=== PATIENT | female | born 1945 | race Caucasian/White ===

== ENCOUNTER 2018-10-03 12:29 | Observation (INO) | payer MEDICARE, OTHER ==
--- NOTE | 2018-10-03 13:02 | EDM.PDOC ---
ED HPI GENERAL MEDICAL PROBLEM - General Chief Complaint: General Stated Complaint: ISSUES FOLLOWING OPEN HEART SURGERY Time Seen by Provider: 10/03/18 12:33 Source of Information: Reports: Patient History Limitations: Reports: No Limitations - History of Present Illness INITIAL COMMENTS - FREE TEXT/NARRATIVE: HISTORY AND PHYSICAL: History of present illness: Patient is a 73-year-old female presents to the ED today with concern of shortness of breath when laying back after open heart surgery for aortic valve replacement. Patient states she had the surgery approximately 3 weeks ago in [place]. Patient states that if she lays back she gets a panicky feeling and feels short of breath. Patient states when she is sitting up she does not have any symptoms. Patient states she has a bovine valve and is on warfarin and her INRs have been appropriate. Patient states her total hospital stay was approximately one week and she had no complications from the surgery. Patient states she had called her surgeon with the symptoms who stated that she needed to be seen in the emergency room. Patient denies fever, chills, chest pain, or cough. Denies headache, neck stiff ness, change in vision, syncope, or near syncope. Denies nausea, vomiting, abdominal pain, diarrhea, constipation, or dysuria. Has not noted any blood in urine or stool. Patient has been eating and drinking appropriately. Review of systems: As per history of present illness and below otherwise all systems reviewed and negative. Past medical history: As per history of present illness and as reviewed below otherwise noncontributory. Surgical history: As per history of present illness and as reviewed below otherwise noncontributory. Social history: See social history for further information Family history: As per history of present illness and as reviewed below otherwise noncontributory. Physical exam: General: Patient is alert, oriented, and in no acute distress. Patient sitting comfortably on exam table. HEENT: Atraumatic, normocephalic, pupils equal and reactive bilaterally, negative for conjunctival pallor or scleral icterus, mucous membranes moist, TMs normal bilaterally, throat clear, neck supple, nontender, trachea midline. No drooling or trismus noted. No meningeal signs. No hot potato voice noted. Lungs: Clear to auscultation, breath sounds equal bilaterally, chest nontender. Heart: S1S2, regular rate and rhythm without overt murmur Abdomen: Soft, nondistended, nontender. Negative for masses or hepatosplenomegaly. Negative for costovertebral tenderness. Pelvis: Stable nontender. Genitourinary: Deferred. Rectal: Deferred. Skin: Intact, warm, dry. No lesions or rashes noted. Extremities: Atraumatic, negative for cords or calf pain. Neurovascular unremarkable. Neuro: Awake, alert, oriented. Cranial nerves II through XII unremarkable. Cerebellum unremarkable. Motor and sensory unremarkable throughout. Exam nonfocal. Notes: Dr. Chacon verbally involved in patient care. Patient did have an echo done in March of this year which showed an ejection fraction of 45-50%. Today her echo has an ejection fracture of 25%. I did call [facility] in [place], where patient had her aortic valve replaced. I talked to Dr. Carter Lawson, the cardiothoracic surgeon. I did thoroughly discuss the patient's case with him. Per his recommendations patient does not need to be transferred to [place] at this time. He states to optimally manage her for congestive heart failure and to have her follow up with cardiology this week in [place]. I did call and get patient appointment with the cardiology clinic in [place] for this Tuesday at 11:[address] Cantrell consulted on patient and will admit to observation. Voices understanding and is agreeable to plan of care. Denies any further questions or concerns at this time. Diagnostics: CBC, CMP, UA, EKG, troponin, chest x-ray, PT/INR, Echo Therapeutics: Lasix Impression: Congestive heart failure s/p aortic valve replacement Subtherapeutic INR Orthopnea Small pleural effusion on CXR Plan: 1. Admit to observation to Dr. Cantrell. Definitive disposition and diagnosis as appropriate pending reevaluation and review of above. - Related Data Allergies Allergy/AdvReac Type Severity Reaction Status Date / Time latex Allergy Difficulty Verified 10/03/18 12:33 Breathing ANASTHESIA Allergy Vomiting Uncoded 10/03/18 12:33 Home Meds: Home Meds Aspirin [Sonia Chewable] 81 mg PO 10/15/13 [History] Calcium Carbonate/Vitamin D3 [Calcium 500 + Vit D 200 Caplet] 1 each PO [History] Pantoprazole Sodium [Protonix] 40 mg PO DAILY 10/15/13 [History] Acetaminophen 1,000 mg PO ASDIRECTED 10/03/18 [History] Albuterol Sulfate [Albuterol Sulfate Hfa] 8.5 gm INH ASDIRECTED 10/03/18 [ History] Diclofenac Sodium [Voltaren 1% Gel] 2 gm TOP ASDIRECTED 10/03/18 [History] Ferrous Sulfate [Iron] 325 mg PO DAILY 10/03/18 [History] Furosemide 20 mg PO DAILY 10/03/18 [History] Loratadine 10 mg PO ASDIRECTED 10/03/18 [History] Metoprolol Tartrate 12.5 mg PO BID 10/03/18 [History] Mometasone Furoate [Nasonex] 17 gm INH ASDIRECTED 10/03/18 [History] Potassium Chloride 20 meq PO DAILY 10/03/18 [History] Tiotropium [Spiriva HandiHaler] 18 mcg INH DAILY 10/03/18 [History] Warfarin [Coumadin] 5 mg PO DAILY 10/03/18 [History] Past Medical History HEENT History: Reports: Cataract 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 - Infectious Disease History Infectious Disease History: Reports: Chicken Pox, Mumps - Past Surgical History HEENT Surgical History: Reports: Tonsillectomy Cardiovascular Surgical History: Reports: Valve Replacement GI Surgical History: Reports: Cholecystectomy Social & Family History - Family History Family Medical History: Noncontributory - Tobacco Use Smoking Status *Q: Former Smoker Used Tobacco, but Quit: Yes Month/Year Tobacco Last Used: 1968 - Caffeine Use Caffeine Use: Reports: Coffee, Tea - Recreational Drug Use Recreational Drug Use: No ED ROS GENERAL - Review of Systems Review Of Systems: ROS reveals no pertinent complaints other than HPI. ED EXAM, GENERAL - Physical Exam Exam: See Below (See dictation) Course - Vital Signs Last Recorded V/S: Last Vital Signs Temp 36.2 C 10/03/18 12:47 Pulse 81 10/03/18 12:47 Resp 18 10/03/18 12:47 BP 153/96 H 10/03/18 12:47 Pulse Ox 95 10/03/18 12:47 - Orders/Labs/Meds Orders: Active Orders 24 hr Category Date Time Status Cardiac Monitoring [RC] . DIRECTED Care 10/03/18 12:39 Active EKG Documentation Completion [RC] STAT Care 10/03/18 12:40 Active Echo Comp wo Cont [US] Stat Exams 10/03/18 12:41 Taken Furosemide [Lasix] Med 10/03/18 15:58 Once 20 mg IVPUSH NOW ONE Labs: Laboratory Tests 10/03/18 10/03/18 10/03/18 Range/Units 12:52 12:52 12:52 WBC 6.52 (4.0-11.0) K/uL RBC 3.67 L (4.30-5.90) M/uL Hgb 10.2 L (12.0-16.0) g/dL Hct 33.9 L (36.0-46.0) % MCV 92.4 (80.0-98.0) fL MCH 27.8 (27.0-32.0) pg MCHC 30.1 L (31.0-37.0) g/dL RDW Std Deviation 53.8 (28.0-62.0) fl RDW Coeff of Destiny 16 H (11.0-15.0) % Plt Count 276 (150-400) K/uL MPV 9.40 (7.40-12.00) fL Neut % (Auto) 65.8 (48.0-80.0) % Lymph % (Auto) 23.2 (16.0-40.0) % [place] % (Auto) 7.8 (0.0-15.0) % Eos % (Auto) 2.9 (0.0-7.0) % Baso % (Auto) 0.3 (0.0-1.5) % Neut # (Auto) 4.3 (1.4-5.7) K/uL Lymph # (Auto) 1.5 (0.6-2.4) K/uL [place] # (Auto) 0.5 (0.0-0.8) K/uL Eos # (Auto) 0.2 (0.0-0.7) K/uL Baso # (Auto) 0.0 (0.0-0.1) K/uL Nucleated RBC % 0.0 /100WBC Nucleated RBCs # 0 K/uL INR 1.48 Sodium 141 (136-145) mmol/L Potassium 4.1 (3.5-5.1) mmol/L Chloride 104 (98-107) mmol/L Carbon Dioxide 26.4 (21.0-32.0) mmol/L BUN 10 (7.0-18.0) mg/dL Creatinine 1.0 (0.6-1.0) mg/dL Est Cr Clr Drug Dosing 42.68 mL/min Estimated GFR (MDRD) 54.7 ml/min Glucose 112 H (74-106) mg/dL Calcium 9.0 (8.5-10.1) mg/dL Total Bilirubin 0.6 (0.2-1.0) mg/dL AST 21 (15-37) IU/L ALT 64 H (14-63) IU/L Alkaline Phosphatase 108 (46-116) U/L Troponin I < 0.050 (0.000-0.056) ng/mL B-Natriuretic Peptide (<100) PG/ML Total Protein 7.0 (6.4-8.2) g/dL Albumin 3.7 (3.4-5.0) g/dL Globulin 3.3 (2.6-4.0) g/dL Albumin/Globulin Ratio 1.1 (0.9-1.6) Urine Color Urine Appearance Urine pH (5.0-8.0) Ur Specific [place] (1.001-1.035) Urine Protein (NEGATIVE) mg/dL Urine Glucose (UA) (NEGATIVE) mg/dL Urine Ketones (NEGATIVE) mg/dL Urine Occult Blood (NEGATIVE) Urine Nitrite (NEGATIVE) Urine Bilirubin (NEGATIVE) Urine Urobilinogen (<2.0) EU/dL Ur Leukocyte Esterase (NEGATIVE) Urine RBC (0-2/HPF) Urine WBC (0-5/HPF) Ur Epithelial Cells (NONE-FEW) Urine Bacteria (NEGATIVE) 10/03/18 10/03/18 Range/Units 12:52 14:00 WBC (4.0-11.0) K/uL RBC (4.30-5.90) M/uL Hgb (12.0-16.0) g/dL Hct (36.0-46.0) % MCV (80.0-98.0) fL MCH (27.0-32.0) pg MCHC (31.0-37.0) g/dL RDW Std Deviation (28.0-62.0) fl RDW Coeff of [place]iny (11.0-15.0) % Plt Count (150-400) K/uL MPV (7.40-12.00) fL Neut % (Auto) (48.0-80.0) % Lymph % (Auto) (16.0-40.0) % [place] % (Auto) (0.0-15.0) % Eos % (Auto) (0.0-7.0) % Baso % (Auto) (0.0-1.5) % Neut # (Auto) (1.4-5.7) K/uL Lymph # (Auto) (0.6-2.4) K/uL [place] # (Auto) (0.0-0.8) K/uL Eos # (Auto) (0.0-0.7) K/uL Baso # (Auto) (0.0-0.1) K/uL Nucleated RBC % /100WBC Nucleated RBCs # K/uL INR Sodium (136-145) mmol/L Potassium (3.5-5.1) mmol/L Chloride (98-107) mmol/L Carbon Dioxide (21.0-32.0) mmol/L BUN (7.0-18.0) mg/dL Creatinine (0.6-1.0) mg/dL Est Cr Clr Drug Dosing mL/min Estimated GFR (MDRD) ml/min Glucose (74-106) mg/dL Calcium (8.5-10.1) mg/dL Total Bilirubin (0.2-1.0) mg/dL AST (15-37) IU/L ALT (14-63) IU/L Alkaline Phosphatase (46-116) U/L Troponin I (0.000-0.056) ng/mL B-Natriuretic Peptide 1266 H (<100) PG/ML Total Protein (6.4-8.2) g/dL Albumin (3.4-5.0) g/dL Globulin (2.6-4.0) g/dL Albumin/Globulin Ratio (0.9-1.6) Urine Color YELLOW Urine Appearance CLEAR Urine pH 6.5 (5.0-8.0) Ur Specific [place] <= 1.005 (1.001-1.035) Urine Protein NEGATIVE (NEGATIVE) mg/dL Urine Glucose (UA) NEGATIVE (NEGATIVE) mg/dL Urine Ketones NEGATIVE (NEGATIVE) mg/dL Urine Occult Blood SMALL H (NEGATIVE) Urine Nitrite NEGATIVE (NEGATIVE) Urine Bilirubin NEGATIVE (NEGATIVE) Urine Urobilinogen 0.2 (<2.0) EU/dL Ur Leukocyte Esterase NEGATIVE (NEGATIVE) Urine RBC 0-1 (0-2/HPF) Urine WBC NONE SEEN (0-5/HPF) Ur Epithelial Cells RARE (NONE-FEW) Urine Bacteria RARE (NEGATIVE) Departure - Departure Time of Disposition: 16:02 Disposition: Refer to Observation Clinical Impression: Congestive heart failure as early postoperative complication, Orthopnea, Subtherapeutic anticoagulation, Small pleural effusion - Discharge Information - My Orders Last 24 Hours: My Active Orders 10/03/18 12:39 Cardiac Monitoring [RC] . DIRECTED 10/03/18 12:40 EKG Documentation Completion [RC] STAT 10/03/18 12:41 Echo Comp wo Cont [US] Stat 10/03/18 15:58 Furosemide [Lasix] 20 mg IVPUSH NOW ONE - Assessment/Plan Last 24 Hours: My Active Orders 10/03/18 12:39 Cardiac Monitoring [RC] . DIRECTED 10/03/18 12:40 EKG Documentation Completion [RC] STAT 10/03/18 12:41 Echo Comp wo Cont [US] Stat 10/03/18 15:58 Furosemide [Lasix] 20 mg IVPUSH NOW ONE
--- NOTE | 2018-10-03 13:47 | CR ---
EXAMINATION: Two-view chest (PA and Lateral views). HISTORY: Shortness of breath. FINDINGS: The trachea is midline. The heart is enlarged. The cardiomediastinal silhouette is within normal limits. There is a small right and minimal left pleural effusion with adjacent atelectasis. Median sternotomy wires are noted. Aortic valvular replacement. Osseous structures appear unremarkable. IMPRESSION: Cardiomegaly with a small right pleural effusion.
[2018-10-03 13:55] LABS: CHLORIDE,CL 104 mmol/L (98-107); SODIUM,NA 141 mmol/L (136-145)
[2018-10-03] MEDS ORDERED: Furosemide 40 MG/4 ML VIAL IVPUSH ONE ×2 (15:58→17:08)
--- NOTE | 2018-10-03 16:51 | PCM.HP ---
H&P History of Present Illness - General Date of Service: 10/03/18 Admit Problem/Dx: Admission Diagnosis/Problem Admission Diagnosis/Problem CHF, Congestive heart failure Source of Information: Patient, Old Records History Limitations: Reports: No Limitations - History of Present Illness Initial Comments - Free Text/Narative: This 73 year old female with pmh of recent TAVR in [place] 3 weeks ago, HTN, chronic bronchitis, and GERD presents to the ED today with worsening shortness of breath, especially when lying down along with worsening lower leg edema. She reports she followed up with Cardiology clinic September 26 and everything was going well. She recently increased Coumadin dosage to 5 mg daily due to subtherapeutic INR. She denies chest pain or palpitations. No abdominal pain. She is unsure of her dry weight, but that last appointment she was 175 lbs. She reports being complaint with medications, including Metoprolol and Lasix. Denies salt intake. Reports appetite is poor after surgery still, but is trying to eat more and more. In the ED Hgb 10.2 INR 1.48, BMP WNL. BNP 1266. UA negative. CXR shows cardiomegaly with R pleural effusion. EKG SR with LAD. Stat ECHO ws obtained and sent to [place]. ED provider spoke with cardiothoracic surgeon who saw severely diminished EF, 25% and recommended diuresis. No need for acute transfer. She will be admitted observation with acute exacerbation of heart failure. - Related Data Allergies/Adverse Reactions: Allergies Allergy/AdvReac Type Severity Reaction Status Date / Time latex Allergy Severe Anaphylactic Verified 10/03/18 17:33 Shock avocado Allergy Anaphylactic Verified 10/03/18 17:33 Shock banana Allergy Anaphylactic Verified 10/03/18 17:33 Shock anesthesia Allergy Vomiting Uncoded 10/03/18 17:34 Home Medications: Home Meds Aspirin [Sonia Chewable] 81 mg PO DAILY 10/15/13 [History] Calcium Carbonate/Vitamin D3 [Calcium 500 + Vit D 200 Caplet] 1 each PO DAILY [History] Pantoprazole Sodium [Protonix] 40 mg PO DAILY 10/15/13 [History] Acetaminophen 1,000 mg PO Q4H PRN 10/03/18 [History] Albuterol Sulfate [Albuterol Sulfate Hfa] 2 puff INH Q4H 10/03/18 [History] Diclofenac Sodium [Voltaren 1% Gel] 2 gm TOP ASDIRECTED PRN 10/03/18 [History] Ferrous Sulfate [Iron] 325 mg PO DAILY 10/03/18 [History] Furosemide 20 mg PO DAILY 10/03/18 [History] Loratadine 10 mg PO ASDIRECTED 10/03/18 [History] Metoprolol Tartrate 12.5 mg PO BID 10/03/18 [History] Mometasone Furoate [Nasonex] 2 spray INH DAILY PRN 10/03/18 [History] Potassium Chloride 20 meq PO DAILY 10/03/18 [History] Tiotropium [Spiriva HandiHaler] 18 mcg INH DAILY 10/03/18 [History] Warfarin [Coumadin] 5 mg PO DAILY 10/03/18 [History] Past Medical History HEENT History: Reports: Cataract Cardiovascular History: Reports: Heart Failure, Heart Valve Replacement (bovine aortic, August 2018), High Cholesterol, Hypertension Respiratory History: Reports: COPD (chronic bronchitis) Gastrointestinal History: Reports: GERD 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 Endocrine/Metabolic History: Denies: Diabetes, Type II Hematologic History: Reports: Anticoagulation Therapy - Infectious Disease History Infectious Disease History: Reports: Chicken Pox, Mumps - Past Surgical History HEENT Surgical History: Reports: Tonsillectomy Cardiovascular Surgical History: Reports: Valve Replacement (TAVR) GI Surgical History: Reports: Cholecystectomy Social & Family History - Family History Family Medical History: Noncontributory - Tobacco Use Smoking Status *Q: Former Smoker Used Tobacco, but Quit: Yes Month/Year Tobacco Last Used: 1968 - Caffeine Use Caffeine Use: Reports: Coffee, Tea - Recreational Drug Use Recreational Drug Use: No - Living Situation & Occupation Living situation: Reports: Occupation: Retired H&P Review of Systems - Review of Systems: Review Of Systems: See Below General: Reports: Decreased Appetite (since surgery). Denies: Fever, Chills HEENT: Reports: No Symptoms. Denies: Headaches, Sore Throat, Vertigo, Visual Changes Pulmonary: Reports: Shortness of Breath (mainly orthopnea). Denies: Cough, Hemoptysis Cardiovascular: Reports: Orthopnea, Edema (lower legs). Denies: Chest Pain Gastrointestinal: Reports: No Symptoms. Denies: Abdominal Pain, Black Stool, Bloody Stool, Diarrhea, Nausea, Vomiting Genitourinary: Reports: No Symptoms Musculoskeletal: Reports: No Symptoms Skin: Reports: No Symptoms Psychiatric: Reports: No Symptoms Neurological: Reports: No Symptoms Exam - Exam Exam: See Below - Vital Signs Vital Signs: Last Vital Signs Temp 97.2 F 10/03/18 12:47 Pulse 84 10/03/18 16:00 Resp 18 10/03/18 12:47 BP 153/86 H 10/03/18 16:00 Pulse Ox 96 10/03/18 16:00 Weight: 79.379 kg - Exam Quality Assessment: DVT Prophylaxis General: Alert, Oriented, Cooperative HEENT: Conjunctiva Clear, Mucosa Moist & [place], Pupils Equal Neck: Supple, JVD Lungs: Normal Respiratory Effort (sitting on edge of ED bed.), Decreased Breath Sounds Cardiovascular: Regular Rate, Regular Rhythm GI/Abdominal Exam: Normal Bowel Sounds, Soft, Non-Tender Back Exam: Normal Inspection, Full Range of Motion Extremities: Normal Inspection, Normal Range of Motion, Pedal Edema (+2 pitting edema to BLE) Skin: Warm, Dry, Incision (Healing sternotomy incision, nearly completely healed.) Neuro Extensive - Mental Status: Alert, Oriented x3, Normal Mood/Affect Psychiatric: Alert, Normal Affect, Normal Mood - Patient Data Lab Results Last 24 hrs: Laboratory Results - last 24 hr 10/03/18 10/03/18 10/03/18 Range/Units 12:52 12:52 12:52 WBC 6.52 (4.0-11.0) K/uL RBC 3.67 L (4.30-5.90) M/uL Hgb 10.2 L (12.0-16.0) g/dL Hct 33.9 L (36.0-46.0) % MCV 92.4 (80.0-98.0) fL MCH 27.8 (27.0-32.0) pg MCHC 30.1 L (31.0-37.0) g/dL RDW Std Deviation 53.8 (28.0-62.0) fl RDW Coeff of Destiny 16 H (11.0-15.0) % Plt Count 276 (150-400) K/uL MPV 9.40 (7.40-12.00) fL Neut % (Auto) 65.8 (48.0-80.0) % Lymph % (Auto) 23.2 (16.0-40.0) % [place] % (Auto) 7.8 (0.0-15.0) % Eos % (Auto) 2.9 (0.0-7.0) % Baso % (Auto) 0.3 (0.0-1.5) % Neut # (Auto) 4.3 (1.4-5.7) K/uL Lymph # (Auto) 1.5 (0.6-2.4) K/uL [place] # (Auto) 0.5 (0.0-0.8) K/uL Eos # (Auto) 0.2 (0.0-0.7) K/uL Baso # (Auto) 0.0 (0.0-0.1) K/uL Nucleated RBC % 0.0 /100WBC Nucleated RBCs # 0 K/uL INR 1.48 Sodium 141 (136-145) mmol/L Potassium 4.1 (3.5-5.1) mmol/L Chloride 104 (98-107) mmol/L Carbon Dioxide 26.4 (21.0-32.0) mmol/L BUN 10 (7.0-18.0) mg/dL Creatinine 1.0 (0.6-1.0) mg/dL Est Cr Clr Drug Dosing 42.68 mL/min Estimated GFR (MDRD) 54.7 ml/min Glucose 112 H (74-106) mg/dL Calcium 9.0 (8.5-10.1) mg/dL Total Bilirubin 0.6 (0.2-1.0) mg/dL AST 21 (15-37) IU/L ALT 64 H (14-63) IU/L Alkaline Phosphatase 108 (46-116) U/L Troponin I < 0.050 (0.000-0.056) ng/mL B-Natriuretic Peptide (<100) PG/ML Total Protein 7.0 (6.4-8.2) g/dL Albumin 3.7 (3.4-5.0) g/dL Globulin 3.3 (2.6-4.0) g/dL Albumin/Globulin Ratio 1.1 (0.9-1.6) Urine Color Urine Appearance Urine pH (5.0-8.0) Ur Specific [place] (1.001-1.035) Urine Protein (NEGATIVE) mg/dL Urine Glucose (UA) (NEGATIVE) mg/dL Urine Ketones (NEGATIVE) mg/dL Urine Occult Blood (NEGATIVE) Urine Nitrite (NEGATIVE) Urine Bilirubin (NEGATIVE) Urine Urobilinogen (<2.0) EU/dL Ur Leukocyte Esterase (NEGATIVE) Urine RBC (0-2/HPF) Urine WBC (0-5/HPF) Ur Epithelial Cells (NONE-FEW) Urine Bacteria (NEGATIVE) 10/03/18 10/03/18 Range/Units 12:52 14:00 WBC (4.0-11.0) K/uL RBC (4.30-5.90) M/uL Hgb (12.0-16.0) g/dL Hct (36.0-46.0) % MCV (80.0-98.0) fL MCH (27.0-32.0) pg MCHC (31.0-37.0) g/dL RDW Std Deviation (28.0-62.0) fl RDW Coeff of [place]iny (11.0-15.0) % Plt Count (150-400) K/uL MPV (7.40-12.00) fL Neut % (Auto) (48.0-80.0) % Lymph % (Auto) (16.0-40.0) % [place] % (Auto) (0.0-15.0) % Eos % (Auto) (0.0-7.0) % Baso % (Auto) (0.0-1.5) % Neut # (Auto) (1.4-5.7) K/uL Lymph # (Auto) (0.6-2.4) K/uL [place] # (Auto) (0.0-0.8) K/uL Eos # (Auto) (0.0-0.7) K/uL Baso # (Auto) (0.0-0.1) K/uL Nucleated RBC % /100WBC Nucleated RBCs # K/uL INR Sodium (136-145) mmol/L Potassium (3.5-5.1) mmol/L Chloride (98-107) mmol/L Carbon Dioxide (21.0-32.0) mmol/L BUN (7.0-18.0) mg/dL Creatinine (0.6-1.0) mg/dL Est Cr Clr Drug Dosing mL/min Estimated GFR (MDRD) ml/min Glucose (74-106) mg/dL Calcium (8.5-10.1) mg/dL Total Bilirubin (0.2-1.0) mg/dL AST (15-37) IU/L ALT (14-63) IU/L Alkaline Phosphatase (46-116) U/L Troponin I (0.000-0.056) ng/mL B-Natriuretic Peptide 1266 H (<100) PG/ML Total Protein (6.4-8.2) g/dL Albumin (3.4-5.0) g/dL Globulin (2.6-4.0) g/dL Albumin/Globulin Ratio (0.9-1.6) Urine Color YELLOW Urine Appearance CLEAR Urine pH 6.5 (5.0-8.0) Ur Specific [place] <= 1.005 (1.001-1.035) Urine Protein NEGATIVE (NEGATIVE) mg/dL Urine Glucose (UA) NEGATIVE (NEGATIVE) mg/dL Urine Ketones NEGATIVE (NEGATIVE) mg/dL Urine Occult Blood SMALL H (NEGATIVE) Urine Nitrite NEGATIVE (NEGATIVE) Urine Bilirubin NEGATIVE (NEGATIVE) Urine Urobilinogen 0.2 (<2.0) EU/dL Ur Leukocyte Esterase NEGATIVE (NEGATIVE) Urine RBC 0-1 (0-2/HPF) Urine WBC NONE SEEN (0-5/HPF) Ur Epithelial Cells RARE (NONE-FEW) Urine Bacteria RARE (NEGATIVE) Result Diagrams: 10/03/18 12:52 10/03/18 12:52 EKG INTERPRETATION EKG Date: 10/03/18 Rhythm: NSR [place]: LAD-Left [place] Deviation QRS: Normal ST-T: Normal QT: Normal - Problem List (1) Congestive heart failure as early postoperative complication SNOMED Code(s): 24046391940346 ICD Code: UIZ0977 - Status: Acute Current Visit: Yes (2) Orthopnea SNOMED Code(s): 35311921 ICD Code: R06.01 - ORTHOPNEA Status: Acute Current Visit: Yes (3) Small pleural effusion SNOMED Code(s): 90916574 ICD Code: J90 - PLEURAL EFFUSION, NOT ELSEWHERE CLASSIFIED Status: Acute Current Visit: Yes (4) Subtherapeutic anticoagulation SNOMED Code(s): 583192293 ICD Code: Z51.81 - ENCOUNTER FOR THERAPEUTIC DRUG LEVEL MONITORING; Z79.01 - FDC (CURRENT) USE OF ANTICOAGULANTS Status: Acute Current Visit: Yes (5) HTN (hypertension) SNOMED Code(s): 07929963 ICD Code: I10 - ESSENTIAL (PRIMARY) HYPERTENSION Status: Chronic Current Visit: Yes (6) Hx of aortic valve replacement SNOMED Code(s): 8609342878009, 100284812, 0105175570183 ICD Code: Z95.2 - PRESENCE OF PROSTHETIC HEART VALVE Status: Chronic Current Visit: Yes (7) GERD (gastroesophageal reflux disease) SNOMED Code(s): 059078522 ICD Code: K21.9 - GASTRO-ESOPHAGEAL REFLUX DISEASE WITHOUT ESOPHAGITIS Status: Chronic Current Visit: Yes (8) Chronic bronchitis SNOMED Code(s): 82602181 ICD Code: J42 - UNSPECIFIED CHRONIC BRONCHITIS Status: Chronic Current Visit: Yes Problem List Initiated/Reviewed/Updated: Yes Orders Last 24hrs: Active Orders 24 hr Category Date Time Status Admission Status [Patient Status] [ADT] Stat ADT 10/03/18 16:03 Active Cardiac Monitoring [RC] . DIRECTED Care 10/03/18 12:39 Active EKG Documentation Completion [RC] STAT Care 10/03/18 12:40 Active Echo Comp wo Cont [US] Stat Exams 10/03/18 12:41 Taken Assessment/Plan Comment:: This 73 year old female admitted with acute exacerbation of CHF s/p TAVR August 2018 1. Acute exacerbation of CHF: LV EF 25%, severely decreased left ventricular systolic function, multiple left ventricular region wall abnormalities exist. Will give another dose of Lasix to equal 40 mg IV this evening. Continue Lasix 40 mg IV BID. Monitor on telemetry Strict I/O, daily weight. Low Na diet with 1.5 L FR. Cardiology appointment set up for Tuesday in [place]. 2. HTN: Stable. Monitor with diuresis. 3. Aortic valve replacement: Continue Coumadin. Monitor INR daily. 4. Chronic bronchitis: Continue inhalers. No wheezing heard. VTE prophylaxis: Coumadin Dispo: 1-2 days.
[2018-10-03] MEDS ORDERED: Sodium Chloride 0.9% 2.5 ML Syringe FLUSH PRN (17:08)
[2018-10-03] MEDS ORDERED: Albuterol/Ipratropium 3.0-0.5 MG/3 ML Neb Soln NEB PRN (17:08)
[2018-10-03] MEDS: Acetaminophen 325 MG Tab PO PRN (20:17)
[2018-10-03] MEDS: Metoprolol Tartrate 25 MG Tab PO SCH (20:17)
[2018-10-04 05:45] LABS: CHLORIDE,CL 104 mmol/L (98-107); SODIUM,NA 142 mmol/L (136-145)
[2018-10-04] MEDS: Acetaminophen 325 MG Tab PO PRN ×2 (08:32→21:24)
[2018-10-04] MEDS: Aspirin 81 MG Tab.Chew PO SCH (08:42)
[2018-10-04] MEDS: Pantoprazole 40 MG Tab.CR PO SCH (08:42)
[2018-10-04] MEDS: Ferrous Sulfate 325 MG Tab PO SCH (08:42)
[2018-10-04] MEDS: Furosemide 40 MG/4 ML VIAL IVPUSH SCH ×2 (08:43→14:19)
[2018-10-04] MEDS: Metoprolol Tartrate 25 MG Tab PO SCH ×2 (08:53→21:22)
[2018-10-04] MEDS: Tiotropium Inhaler 18 MCG Inhalation Powder Cap Kit of 5 INH SCH (09:20)
--- NOTE | 2018-10-04 10:18 | PCM.PN ---
- General Info Date of Service: 10/04/18 Admission Dx/Problem (Free Text): Admission Diagnosis/Problem Admission Diagnosis/Problem CHF, Congestive heart failure Subjective Update: feeling improved today, BLE improved. Orthopnea and exertional dyspnea improved slightly as well. No chest pain or palpitations. Functional Status: Reports: Pain Controlled, Tolerating Diet, Ambulating, Urinating - Review of Systems HEENT: Reports: No Symptoms Pulmonary: Reports: Shortness of Breath Cardiovascular: Reports: Dyspnea on Exertion, Orthopnea, Edema (much improved.) Gastrointestinal: Reports: No Symptoms. Denies: Abdominal Pain, Nausea, Vomiting Genitourinary: Reports: No Symptoms. Denies: Dysuria, Frequency, Burning Musculoskeletal: Reports: No Symptoms Skin: Reports: No Symptoms Neurological: Reports: No Symptoms Psychiatric: Reports: No Symptoms - Patient Data Vitals - Most Recent: Last Vital Signs Temp 97.5 F 10/04/18 04:00 Pulse 85 10/04/18 08:53 Resp 18 10/04/18 04:00 BP 132/63 10/04/18 08:53 Pulse Ox 96 10/04/18 04:00 Weight - Most Recent: 71.838 kg I&O - Last 24 Hours: Intake & Output 10/03/18 10/04/18 10/04/18 22:59 06:59 14:59 Intake Total 300 Output Total 3050 Balance -2750 Lab Results Last 24 Hours: Laboratory Results - last 24 hr 10/03/18 10/03/18 10/03/18 Range/Units 12:52 12:52 12:52 WBC 6.52 (4.0-11.0) K/uL RBC 3.67 L (4.30-5.90) M/uL Hgb 10.2 L (12.0-16.0) g/dL Hct 33.9 L (36.0-46.0) % MCV 92.4 (80.0-98.0) fL MCH 27.8 (27.0-32.0) pg MCHC 30.1 L (31.0-37.0) g/dL RDW Std Deviation 53.8 (28.0-62.0) fl RDW Coeff of Destiny 16 H (11.0-15.0) % Plt Count 276 (150-400) K/uL MPV 9.40 (7.40-12.00) fL Neut % (Auto) 65.8 (48.0-80.0) % Lymph % (Auto) 23.2 (16.0-40.0) % [place] % (Auto) 7.8 (0.0-15.0) % Eos % (Auto) 2.9 (0.0-7.0) % Baso % (Auto) 0.3 (0.0-1.5) % Neut # (Auto) 4.3 (1.4-5.7) K/uL Lymph # (Auto) 1.5 (0.6-2.4) K/uL [place] # (Auto) 0.5 (0.0-0.8) K/uL Eos # (Auto) 0.2 (0.0-0.7) K/uL Baso # (Auto) 0.0 (0.0-0.1) K/uL Nucleated RBC % 0.0 /100WBC Nucleated RBCs # 0 K/uL INR 1.48 Sodium 141 (136-145) mmol/L Potassium 4.1 (3.5-5.1) mmol/L Chloride 104 (98-107) mmol/L Carbon Dioxide 26.4 (21.0-32.0) mmol/L BUN 10 (7.0-18.0) mg/dL Creatinine 1.0 (0.6-1.0) mg/dL Est Cr Clr Drug Dosing 42.68 mL/min Estimated GFR (MDRD) 54.7 ml/min Glucose 112 H (74-106) mg/dL Calcium 9.0 (8.5-10.1) mg/dL Total Bilirubin 0.6 (0.2-1.0) mg/dL AST 21 (15-37) IU/L ALT 64 H (14-63) IU/L Alkaline Phosphatase 108 (46-116) U/L Troponin I < 0.050 (0.000-0.056) ng/mL B-Natriuretic Peptide (<100) PG/ML Total Protein 7.0 (6.4-8.2) g/dL Albumin 3.7 (3.4-5.0) g/dL Globulin 3.3 (2.6-4.0) g/dL Albumin/Globulin Ratio 1.1 (0.9-1.6) Urine Color Urine Appearance Urine pH (5.0-8.0) Ur Specific [place] (1.001-1.035) Urine Protein (NEGATIVE) mg/dL Urine Glucose (UA) (NEGATIVE) mg/dL Urine Ketones (NEGATIVE) mg/dL Urine Occult Blood (NEGATIVE) Urine Nitrite (NEGATIVE) Urine Bilirubin (NEGATIVE) Urine Urobilinogen (<2.0) EU/dL Ur Leukocyte Esterase (NEGATIVE) Urine RBC (0-2/HPF) Urine WBC (0-5/HPF) Ur Epithelial Cells (NONE-FEW) Urine Bacteria (NEGATIVE) 10/03/18 10/03/18 10/04/18 Range/Units 12:52 14:00 05:15 WBC 5.58 (4.0-11.0) K/uL RBC 3.74 L (4.30-5.90) M/uL Hgb 10.4 L (12.0-16.0) g/dL Hct 34.6 L (36.0-46.0) % MCV 92.5 (80.0-98.0) fL MCH 27.8 (27.0-32.0) pg MCHC 30.1 L (31.0-37.0) g/dL RDW Std Deviation 53.6 (28.0-62.0) fl RDW Coeff of Destiny 16 H (11.0-15.0) % Plt Count 276 (150-400) K/uL MPV 9.40 (7.40-12.00) fL Neut % (Auto) 57.4 (48.0-80.0) % Lymph % (Auto) 24.4 (16.0-40.0) % [place] % (Auto) 12.9 (0.0-15.0) % Eos % (Auto) 4.8 (0.0-7.0) % Baso % (Auto) 0.5 (0.0-1.5) % Neut # (Auto) 3.2 (1.4-5.7) K/uL Lymph # (Auto) 1.4 (0.6-2.4) K/uL [place] # (Auto) 0.7 (0.0-0.8) K/uL Eos # (Auto) 0.3 (0.0-0.7) K/uL Baso # (Auto) 0.0 (0.0-0.1) K/uL Nucleated RBC % 0.0 /100WBC Nucleated RBCs # 0 K/uL INR Sodium (136-145) mmol/L Potassium (3.5-5.1) mmol/L Chloride (98-107) mmol/L Carbon Dioxide (21.0-32.0) mmol/L BUN (7.0-18.0) mg/dL Creatinine (0.6-1.0) mg/dL Est Cr Clr Drug Dosing mL/min Estimated GFR (MDRD) ml/min Glucose (74-106) mg/dL Calcium (8.5-10.1) mg/dL Total Bilirubin (0.2-1.0) mg/dL AST (15-37) IU/L ALT (14-63) IU/L Alkaline Phosphatase (46-116) U/L Troponin I (0.000-0.056) ng/mL B-Natriuretic Peptide 1266 H (<100) PG/ML Total Protein (6.4-8.2) g/dL Albumin (3.4-5.0) g/dL Globulin (2.6-4.0) g/dL Albumin/Globulin Ratio (0.9-1.6) Urine Color YELLOW Urine Appearance CLEAR Urine pH 6.5 (5.0-8.0) Ur Specific [place] <= 1.005 (1.001-1.035) Urine Protein NEGATIVE (NEGATIVE) mg/dL Urine Glucose (UA) NEGATIVE (NEGATIVE) mg/dL Urine Ketones NEGATIVE (NEGATIVE) mg/dL Urine Occult Blood SMALL H (NEGATIVE) Urine Nitrite NEGATIVE (NEGATIVE) Urine Bilirubin NEGATIVE (NEGATIVE) Urine Urobilinogen 0.2 (<2.0) EU/dL Ur Leukocyte Esterase NEGATIVE (NEGATIVE) Urine RBC 0-1 (0-2/HPF) Urine WBC NONE SEEN (0-5/HPF) Ur Epithelial Cells RARE (NONE-FEW) Urine Bacteria RARE (NEGATIVE) 10/04/18 10/04/18 Range/Units 05:15 05:15 WBC (4.0-11.0) K/uL RBC (4.30-5.90) M/uL Hgb (12.0-16.0) g/dL Hct (36.0-46.0) % MCV (80.0-98.0) fL MCH (27.0-32.0) pg MCHC (31.0-37.0) g/dL RDW Std Deviation (28.0-62.0) fl RDW Coeff of Destiny (11.0-15.0) % Plt Count (150-400) K/uL MPV (7.40-12.00) fL Neut % (Auto) (48.0-80.0) % Lymph % (Auto) (16.0-40.0) % [place] % (Auto) (0.0-15.0) % Eos % (Auto) (0.0-7.0) % Baso % (Auto) (0.0-1.5) % Neut # (Auto) (1.4-5.7) K/uL Lymph # (Auto) (0.6-2.4) K/uL [place] # (Auto) (0.0-0.8) K/uL Eos # (Auto) (0.0-0.7) K/uL Baso # (Auto) (0.0-0.1) K/uL Nucleated RBC % /100WBC Nucleated RBCs # K/uL INR 1.64 Sodium 142 (136-145) mmol/L Potassium 3.7 (3.5-5.1) mmol/L Chloride 104 (98-107) mmol/L Carbon Dioxide 28.7 (21.0-32.0) mmol/L BUN 11 (7.0-18.0) mg/dL Creatinine 0.9 (0.6-1.0) mg/dL Est Cr Clr Drug Dosing 47.43 mL/min Estimated GFR (MDRD) > 60.0 ml/min Glucose 100 (74-106) mg/dL Calcium 8.9 (8.5-10.1) mg/dL Total Bilirubin (0.2-1.0) mg/dL AST (15-37) IU/L ALT (14-63) IU/L Alkaline Phosphatase (46-116) U/L Troponin I (0.000-0.056) ng/mL B-Natriuretic Peptide (<100) PG/ML Total Protein (6.4-8.2) g/dL Albumin (3.4-5.0) g/dL Globulin (2.6-4.0) g/dL Albumin/Globulin Ratio (0.9-1.6) Urine Color Urine Appearance Urine pH (5.0-8.0) Ur Specific [place] (1.001-1.035) Urine Protein (NEGATIVE) mg/dL Urine Glucose (UA) (NEGATIVE) mg/dL Urine Ketones (NEGATIVE) mg/dL Urine Occult Blood (NEGATIVE) Urine Nitrite (NEGATIVE) Urine Bilirubin (NEGATIVE) Urine Urobilinogen (<2.0) EU/dL Ur Leukocyte Esterase (NEGATIVE) Urine RBC (0-2/HPF) Urine WBC (0-5/HPF) Ur Epithelial Cells (NONE-FEW) Urine Bacteria (NEGATIVE) Med Orders - Current: Current Medications Acetaminophen (Tylenol) 650 mg PO Q4H PRN PRN Reason: Pain Last Admin: 10/04/18 08:32 Dose: 650 mg Albuterol/Ipratropium (Duoneb 3.0-0.5 Mg/3 Ml) 3 ml NEB Q4HRRT PRN PRN Reason: Shortness Of Breath/wheezing Aspirin (Aspirin) 81 mg PO DAILY [facility] Last Admin: 10/04/18 08:42 Dose: 81 mg Ferrous Sulfate (Ferrous Sulfate) 325 mg PO DAILY [facility] Last Admin: 10/04/18 08:42 Dose: 325 mg Furosemide (Lasix) 40 mg IVPUSH BIDDIURETIC [facility] Last Admin: 10/04/18 08:43 Dose: 40 mg Metoprolol Tartrate (Lopressor) 12.5 mg PO BID [facility] Last Admin: 10/04/18 08:53 Dose: 12.5 mg Pantoprazole Sodium (Protonix) 40 mg PO DAILY [facility] Last Admin: 10/04/18 08:42 Dose: 40 mg Sodium Chloride (Saline Flush) 2.5 ml FLUSH ASDIRECTED PRN PRN Reason: Keep Vein Open Tiotropium [place] (Spiriva Handihaler) 18 mcg INH DAILY [facility] Last Admin: 10/04/18 09:20 Dose: 18 mcg Warfarin Sodium (Coumadin Ask) 1 each PO DAILY@1400 ONE Stop: 10/04/18 14:01 Discontinued Medications Furosemide (Lasix) 20 mg IVPUSH NOW ONE Stop: 10/03/18 15:59 Last Admin: 10/03/18 16:49 Dose: 20 mg Furosemide (Lasix) 20 mg IVPUSH NOW ONE Stop: 10/03/18 17:09 Last Admin: 10/03/18 18:09 Dose: 20 mg - Exam General: Alert, Oriented, Cooperative Lungs: Decreased Breath Sounds. No: Normal Respiratory Effort (dyspnea noted, just got back into bed from bathroom.) Cardiovascular: Regular Rate, Regular Rhythm GI/Abdominal Exam: Normal Bowel Sounds, Soft, Non-Tender Extremities: Normal Inspection, Normal Range of Motion, Non-Tender Neurological: No New Focal Deficit Psy/Mental Status: Alert, Normal Affect, Normal Mood - Problem List & Annotations (1) Congestive heart failure as early postoperative complication SNOMED Code(s): 02617267781259 Code(s): [id number] - Status: Acute Current Visit: Yes (2) Orthopnea SNOMED Code(s): 15637192 Code(s): R06.01 - ORTHOPNEA Status: Acute Current Visit: Yes (3) Small pleural effusion SNOMED Code(s): 70833518 Code(s): J90 - PLEURAL EFFUSION, NOT ELSEWHERE CLASSIFIED Status: Acute Current Visit: Yes (4) Subtherapeutic anticoagulation SNOMED Code(s): 741020643 Code(s): Z51.81 - ENCOUNTER FOR THERAPEUTIC DRUG LEVEL MONITORING; Z79.01 - BRIEF WRITER (CURRENT) USE OF ANTICOAGULANTS Status: Acute Current Visit: Yes (5) HTN (hypertension) SNOMED Code(s): 50423930 Code(s): I10 - ESSENTIAL (PRIMARY) HYPERTENSION Status: Chronic Current Visit: Yes (6) Hx of aortic valve replacement SNOMED Code(s): 9213402439384, 563840672, 9448206450901 Code(s): Z95.2 - PRESENCE OF PROSTHETIC HEART VALVE Status: Chronic Current Visit: Yes (7) GERD (gastroesophageal reflux disease) SNOMED Code(s): 327153955 Code(s): K21.9 - GASTRO-ESOPHAGEAL REFLUX DISEASE WITHOUT ESOPHAGITIS Status: Chronic Current Visit: Yes (8) Chronic bronchitis SNOMED Code(s): 31649884 Code(s): J42 - UNSPECIFIED CHRONIC BRONCHITIS Status: Chronic Current Visit: Yes - Problem List Review Problem List Initiated/Reviewed/Updated: Yes - My Orders Last 24 Hours: My Active Orders 10/03/18 17:08 Height and Weight [RC] DAILY Intake and Output Strict [RC] Q12H Oxygen Therapy [RC] PRN Telemetry Monitoring [Cardiac Monitoring] [RC] Q8H Up With Assistance [RC] ASDIRECTED VTE/DVT Education [RC] PER UNIT ROUTINE Vital Signs [RC] Q4H Acetaminophen [Tylenol] 650 mg PO Q4H PRN Albuterol/Ipratropium [DuoNeb 3.0-0.5 MG/3 ML] 3 ml NEB Q4HRRT PRN Sodium Chloride 0.9% [Saline Flush] 2.5 ml FLUSH ASDIRECTED PRN Saline Lock Insert [OM.PC] Routine Resuscitation Status Routine 10/03/18 17:10 RT Aerosol Therapy [RC] ASDIRECTED 10/03/18 21:00 Metoprolol Tartrate [Lopressor] 12.5 mg PO BID 10/03/18 Dinner 2 Gram Sodium Diet [DIET] 10/04/18 05:15 B-TYPE NATRIURETIC PEPTIDE,BNP [CHEM] Routine 10/04/18 08:00 Furosemide [Lasix] 40 mg IVPUSH BIDDIURETIC 10/04/18 09:00 Aspirin 81 mg PO DAILY Ferrous Sulfate 325 mg PO DAILY Pantoprazole [ProTONIX] 40 mg PO DAILY Tiotropium [Spiriva HandiHaler] 18 mcg INH DAILY 10/04/18 14:00 Warfarin Dosing [Coumadin Ask] 1 each PO DAILY@1400 ONE - Plan Plan:: This 73 year old female admitted with acute exacerbation of CHF s/p TAVR August 2018 1. Acute exacerbation of CHF: LV EF 25%, severely decreased left ventricular systolic function, multiple left ventricular region wall abnormalities exist. Continue Lasix 40 mg IV BID. Continue Lasix 40 mg IV BID. Monitor on telemetry Strict I/O, daily weight. Low Na diet with 1.5 L FR. Cardiology appointment set up for Tuesday in [place]. Defer further medication changes to Cardiology on Tuesday. Including starting JESSICA/ARB 2. HTN: Stable. Monitor with diuresis. 3. Aortic valve replacement: Continue Coumadin. Monitor INR daily. 4. Chronic bronchitis: Continue inhalers. No wheezing heard. VTE prophylaxis: Coumadin Dispo: Discharge in am.
[2018-10-04] MEDS ORDERED: Potassium Chloride 20 MEQ Tab.ER PO ONE (13:19)
[2018-10-04] MEDS ORDERED: Warfarin 5 MG Tab PO SCH ×2 (14:00)
[2018-10-04] MEDS ORDERED: Docusate Sodium 100 MG Cap PO PRN (20:55)
[2018-10-05 05:31] LABS: CHLORIDE,CL 102 mmol/L (98-107); SODIUM,NA 140 mmol/L (136-145)
--- NOTE | 2018-10-05 07:47 | PCM.DCSUM1 ---
Discharge Summary - Hospital Course Brief History: This 73 year old female with pmh of recent TAVR in [place] 3 weeks ago, HTN, chronic bronchitis, and GERD presents to the ED today with worsening shortness of breath, especially when lying down along with worsening lower leg edema. She reports she followed up with Cardiology clinic September 26 and everything was going well. She recently increased Coumadin dosage to 5 mg daily due to subtherapeutic INR. She denies chest pain or palpitations. No abdominal pain. She is unsure of her dry weight, but that last appointment she was 175 lbs. She reports being complaint with medications, including Metoprolol and Lasix. Denies salt intake. Reports appetite is poor after surgery still, but is trying to eat more and more. In the ED Hgb 10.2 INR 1.48, BMP WNL. BNP 1266. UA negative. CXR shows cardiomegaly with R pleural effusion. EKG SR with LAD. Stat ECHO ws obtained and sent to [place]. ED provider spoke with cardiothoracic surgeon who saw severely diminished EF, 25% and recommended diuresis. No need for acute transfer. She will be admitted observation with acute exacerbation of heart failure. - Discharge Data Discharge Date: 10/05/18 Discharge Disposition: Home, Self-Care 01 Condition: Good - Discharge Diagnosis/Problem(s) (1) Congestive heart failure as early postoperative complication SNOMED Code(s): 42638810101475 ICD Code: [id number] - Status: Acute (2) Orthopnea SNOMED Code(s): 50702674 ICD Code: R06.01 - ORTHOPNEA Status: Acute (3) Small pleural effusion SNOMED Code(s): 56893060 ICD Code: J90 - PLEURAL EFFUSION, NOT ELSEWHERE CLASSIFIED Status: Acute (4) Subtherapeutic anticoagulation SNOMED Code(s): 297739216 ICD Code: Z51.81 - ENCOUNTER FOR THERAPEUTIC DRUG LEVEL MONITORING; Z79.01 - MOLDER INFLATED BALL (CURRENT) USE OF ANTICOAGULANTS Status: Acute (5) HTN (hypertension) SNOMED Code(s): 95780526 ICD Code: I10 - ESSENTIAL (PRIMARY) HYPERTENSION Status: Chronic (6) Hx of aortic valve replacement SNOMED Code(s): 2387965906439, 423341962, 3973228382466 ICD Code: Z95.2 - PRESENCE OF PROSTHETIC HEART VALVE Status: Chronic (7) GERD (gastroesophageal reflux disease) SNOMED Code(s): 141751358 ICD Code: K21.9 - GASTRO-ESOPHAGEAL REFLUX DISEASE WITHOUT ESOPHAGITIS Status: Chronic (8) Chronic bronchitis SNOMED Code(s): 02546621 ICD Code: J42 - UNSPECIFIED CHRONIC BRONCHITIS Status: Chronic - Patient Instructions Diet: Heart Healthy Diet, Low Sodium Activity: As Tolerated Driving: Do Not Drive Showering/Bathing: May Shower Notify Provider of: Fever, Increased Pain, Swelling and Redness, Drainage, Nausea and/or Vomiting - Discharge Plan *PRESCRIPTION DRUG MONITORING PROGRAM REVIEWED*: Not Applicable *COPY OF PRESCRIPTION DRUG MONITORING REPORT IN PATIENT DIONISIO: Not Applicable Home Medications: Home Meds Aspirin [Sonia Chewable Aspirin] 81 mg PO DAILY 10/15/13 [History] Calcium Carbonate/Vitamin D3 [Calcium 500-Vit D3 200 Caplet] 1 each PO DAILY [History] Pantoprazole Sodium [Protonix] 40 mg PO DAILY 10/15/13 [History] Acetaminophen 1,000 mg PO Q4H PRN 10/03/18 [History] Albuterol Sulfate [Albuterol Sulfate Hfa] 2 puff INH Q4H 10/03/18 [History] Diclofenac Sodium [Voltaren 1% Gel] 2 gm TOP ASDIRECTED PRN 10/03/18 [History] Ferrous Sulfate [Iron] 325 mg PO DAILY 10/03/18 [History] Furosemide 20 mg PO DAILY 10/03/18 [History] Loratadine 10 mg PO ASDIRECTED 10/03/18 [History] Metoprolol Tartrate 12.5 mg PO BID 10/03/18 [History] Mometasone Furoate [Nasonex] 2 spray INH DAILY PRN 10/03/18 [History] Potassium Chloride 20 meq PO DAILY 10/03/18 [History] Tiotropium [Spiriva HandiHaler] 18 mcg INH DAILY 10/03/18 [History] Warfarin [Coumadin] 5 mg PO DAILY 10/03/18 [History] Oxygen Therapy Mode: Room Air Patient Handouts: Heart Failure, [id number], Form - Daily Weight Record - Discharge Summary/Plan Comment DC Time >30 min.: No Discharge Summary/Plan Comment: Admitting Diagnoses: Acute exacerbation of CHF- EF 25% Discharge Diagnoses: CHF exacerbation Other PMH Hx TAVR Anticoagulation with Warfarin Afib Chronic bronchitis PASTOR Cosby was admitted and treated for acute CHF exercation following rcent aortic valve replacement. ECHO was obtained in ED and cardiology from [place] monitored this and felt she did not need urgent transfer but close follow up with them. She was admitted and diuresed with Lasix 40 mg IV BID. She diuresed well and was negative nearly 3 L 2 days in a row, losing nearly 5 kg in weight since admission. She is feeling much improved today and was able to sleep better without orthopnea. Slight JVD still present. Lower extremity edema improved greatly and exertional dyspnea improved as well. No med changes during this admission, as we will leave that to Cardiology she is seeing tomorrow morning. During her stay Afib was noted on telemetry, asymptomatic and rate was controlled. She converted to sinus prior to discharge. Magnesium 2.0 and Potassium 3.4 today, which was supplemented. - General Info Date of Service: 10/05/18 Admission Dx/Problem (Free Text: Admission Diagnosis/Problem Admission Diagnosis/Problem CHF, Congestive heart failure Subjective Update: Feeling good this morning. No concerns. No chest pain. SOB significantly improved. She was up ambulating in room and brushing teeth at the sink without dyspnea. Functional Status: Reports: Pain Controlled, Tolerating Diet, Ambulating, Urinating - Review of Systems General: Reports: No Symptoms. Denies: Weakness, Fatigue, Malaise HEENT: Reports: No Symptoms Pulmonary: Reports: No Symptoms. Denies: Shortness of Breath, Cough, Sputum Cardiovascular: Reports: Dyspnea on Exertion (mild, but much improved from admission.). Denies: Chest Pain, Palpitations, Orthopnea, Edema Gastrointestinal: Reports: No Symptoms. Denies: Abdominal Pain, Nausea, Vomiting Genitourinary: Reports: No Symptoms. Denies: Dysuria, Frequency, Burning Musculoskeletal: Reports: No Symptoms Skin: Reports: No Symptoms Neurological: Reports: No Symptoms Psychiatric: Reports: No Symptoms - Patient Data Vitals - Most Recent: Last Vital Signs Temp 96.5 F 10/05/18 07:22 Pulse 84 10/05/18 07:22 Resp 18 10/05/18 07:22 BP 111/53 L 10/05/18 07:22 Pulse Ox 95 10/05/18 07:22 Weight - Most Recent: 70.488 kg I&O - Last 24 hours: Intake & Output 10/04/18 10/05/18 10/05/18 22:59 06:59 14:59 Intake Total 1500 800 Output Total 3000 2200 Balance -1500 -1400 Lab Results - Last 24 hrs: Laboratory Results - last 24 hr 10/04/18 10/05/18 Range/Units 05:15 04:45 Sodium 140 (136-145) mmol/L Potassium 3.4 L (3.5-5.1) mmol/L Chloride 102 (98-107) mmol/L Carbon Dioxide 29.0 (21.0-32.0) mmol/L BUN 15 (7.0-18.0) mg/dL Creatinine 0.9 (0.6-1.0) mg/dL Est Cr Clr Drug Dosing 47.43 mL/min Estimated GFR (MDRD) > 60.0 ml/min Glucose 98 (74-106) mg/dL Calcium 8.6 (8.5-10.1) mg/dL B-Natriuretic Peptide 1614 H (<100) PG/ML Med Orders - Current: Current Medications Acetaminophen (Tylenol) 650 mg PO Q4H PRN PRN Reason: Pain Last Admin: 10/04/18 21:24 Dose: 650 mg Albuterol/Ipratropium (Duoneb 3.0-0.5 Mg/3 Ml) 3 ml NEB Q4HRRT PRN PRN Reason: Shortness Of Breath/wheezing Aspirin (Aspirin) 81 mg PO DAILY [facility] Last Admin: 10/04/18 08:42 Dose: 81 mg Docusate Sodium (Colace) 100 mg PO DAILY PRN PRN Reason: Constipation Last Admin: 10/04/18 21:23 Dose: 100 mg Ferrous Sulfate (Ferrous Sulfate) 325 mg PO DAILY [facility] Last Admin: 10/04/18 08:42 Dose: 325 mg Furosemide (Lasix) 40 mg IVPUSH BIDDIURETIC [facility] Last Admin: 10/04/18 14:19 Dose: 40 mg Metoprolol Tartrate (Lopressor) 12.5 mg PO BID [facility] Last Admin: 10/04/18 21:22 Dose: 12.5 mg Pantoprazole Sodium (Protonix) 40 mg PO DAILY [facility] Last Admin: 10/04/18 08:42 Dose: 40 mg Sodium Chloride (Saline Flush) 2.5 ml FLUSH ASDIRECTED PRN PRN Reason: Keep Vein Open Tiotropium [place] (Spiriva Handihaler) 18 mcg INH DAILY [facility] Last Admin: 10/04/18 09:20 Dose: 18 mcg Warfarin Sodium (Coumadin) 5 mg PO DAILY@1400 [facility] Last Admin: 10/04/18 14:17 Dose: 5 mg Discontinued Medications Furosemide (Lasix) 20 mg IVPUSH NOW ONE Stop: 10/03/18 15:59 Last Admin: 10/03/18 16:49 Dose: 20 mg Furosemide (Lasix) 20 mg IVPUSH NOW ONE Stop: 10/03/18 17:09 Last Admin: 10/03/18 18:09 Dose: 20 mg Potassium Chloride (Klor-Con M20) 40 meq PO ONETIME ONE Stop: 10/04/18 13:20 Last Admin: 10/04/18 14:18 Dose: 40 meq Warfarin Sodium (Coumadin Ask) 1 each PO DAILY@1400 ONE Stop: 10/04/18 14:01 Last Admin: 10/04/18 14:03 Dose: Not Given - Exam General: Reports: Alert, Oriented, Cooperative, No Acute Distress Neck: Reports: Supple, JVD Lungs: Reports: Clear to Auscultation, Normal Respiratory Effort Cardiovascular: Reports: Regular Rate, Regular Rhythm, Murmurs GI/Abdominal Exam: Normal Bowel Sounds, Soft, Non-Tender, No Distention Extremities: Normal Inspection, Normal Range of Motion, Non-Tender, Pedal Edema (scant, improved since admission) Neurological: Reports: No New Focal Deficit Psy/Mental Status: Reports: Alert, Normal Affect, Normal Mood
[2018-10-05] MEDS ORDERED: Potassium Chloride 20 MEQ Tab.ER PO ONE (08:26)
[2018-10-05] MEDS: Tiotropium Inhaler 18 MCG Inhalation Powder Cap Kit of 5 INH SCH (08:27)
[2018-10-05] MEDS: Furosemide 40 MG/4 ML VIAL IVPUSH SCH (08:46)
[2018-10-05] MEDS: Pantoprazole 40 MG Tab.CR PO SCH (09:19)
[2018-10-05] MEDS: Aspirin 81 MG Tab.Chew PO SCH (09:20)
[2018-10-05] MEDS: Ferrous Sulfate 325 MG Tab PO SCH (09:20)
[2018-10-05] MEDS: Metoprolol Tartrate 25 MG Tab PO SCH (09:23)
--- NOTE | 2018-10-05 17:11 | ECHO ---
The echocardiogram report can be seen in this patient's EMR (Electronic Medical Record) in the Reports section. The echocardiogram report has been scanned into PACS and can be seen there as well. TERRI
== END 2018-10-05 11:00 | disposition home or self-care (01) ==
LOC: MW.ED 12:29 → MW.MS 16:03 → UNDOADMOB 17:07
PROVIDERS: ADMIT Internal Medicine; ATTEND Internal Medicine
DX: I97.130 Postprocedural heart failure following cardiac surgery (principal); I50.9 Heart failure, unspecified; I11.0 Hypertensive heart disease with heart failure; K21.9 Gastro-esophageal reflux disease without esophagitis; E78.00 Pure hypercholesterolemia, unspecified; J44.9 Chronic obstructive pulmonary disease, unspecified; R06.01 Orthopnea; J90 Pleural effusion, not elsewhere classified; Z87.891 Personal history of nicotine dependence; Z95.2 Presence of prosthetic heart valve; Z79.01 Long term (current) use of anticoagulants; Z88.4 Allergy status to anesthetic agent; Z91.040 Latex allergy status; Z91.018 Allergy to other foods; Z79.82 Long term (current) use of aspirin; Z79.51 Long term (current) use of inhaled steroids
CPT/HCPCS: 36415; 71046; 80048; 80053; 81001; 83735; 83880; 84484; 85025; 85610; 93005; 93306; 94640; 94664; 96374; 96376; 99285; A9270; G0378; J1940; 99284

== ENCOUNTER 2020-06-29 22:48 | Emergency (ER) | payer MEDICARE, OTHER ==
[2020-06-29] MEDS ORDERED: Sodium Chloride 0.9% 2.5 ML Syringe FLUSH PRN (23:22)
[2020-06-29] MEDS ORDERED: Sodium Chloride 0.9% 10 ML Syringe FLUSH PRN (23:22)
--- NOTE | 2020-06-29 23:37 | EDM.PDOC ---
ED HPI GENERAL MEDICAL PROBLEM - General Chief Complaint: Cardiovascular Problem Stated Complaint: HEART D FIB Time Seen by Provider: 06/29/20 23:11 - History of Present Illness INITIAL COMMENTS - FREE TEXT/NARRATIVE: History and physical History of present illness: [] The patient reports that for 3 weeks or so she has felt fatigued. She has no appetite. And she feels like she gets somewhat short of breath when she moves around. The patient also had her pacemaker defibrillator information sent to [facility] where the people to follow they got back to her and said that it was sometimes going off. On the of the month of May they increased her amiodarone bolus her metoprolol. From 1/2 to 1 tablet. She feels somewhat more fatigued since then she also lightheaded. She also says she thinks her defibrillator may be going off but she actually does not perceive pain or symptoms when her defibrillator goes off and she has been told that had gone off after interrogation. Patient comes in tonight primarily because she is concerned that over the last couple of days she has developed some increase of her edema in her lower extremities. She also has gained weight. In the past this indicates she is gone into CHF. Her INR was over 4 on last check and she has been told to hold her warfarin for today and then go to half her usual dose. She is scheduled to see her doctor and restart her regular schedule next week. Review of systems: As per history of present illness and below otherwise all systems reviewed and negative. Past medical history: She has a valve replacement years ago and is on warfarin. As per history of present illness and as reviewed below otherwise noncontributory. Surgical history: As per history of present illness and as reviewed below otherwise noncontributory. Social history: No reported history of drug or alcohol abuse. Family history: As per history of present illness and as reviewed below otherwise noncontributory. Physical exam: Constitutional - well developed, well-nourished and in no acute distress HEENT - normocephalic, no evidence of trauma - external nose and mouth normal - no mass in neck and no JVD - mucosae moist EYES - full EOM, PERRL, no icterus - no evidence of inflammation, injection, or drainage Respiratory - no respiratory distress, equal bilateral expansion, lungs clear to auscultation and no abnormal lung sounds Cardiovascular - Regular Rhythm with S1 and S2 appreciated and no murmur, gallop or rub. GI - abdomen soft without distension or organomegaly - normal bowel sounds - no guard or rebound Musculoskeletal no gross deformity of long bones or joints - no tenderness, but she has 2+ pitting edema both lower extremities Neurologic - Alert and oriented times four - CN II-XII grossly intact - motor sensory and coordination symmetrically normal Psychiatric - appropriate mood and affect with normal thought content Hematologic - No petechiae or purpura - mucosa appropriate color and sclera not pale - normal nail bed color and refill Integument - no rash or evidence of trauma - normal turgor Diagnostics: [] Therapeutics: [] Impression: [] Plan: [] Definitive disposition and diagnosis as appropriate pending reevaluation and review of above. - Related Data Allergies Allergy/AdvReac Type Severity Reaction Status Date / Time latex Allergy Severe Anaphylactic Verified 06/29/20 23:17 Shock avocado Allergy Anaphylactic Verified 06/29/20 23:17 Shock banana Allergy Anaphylactic Verified 06/29/20 23:17 Shock anesthesia Allergy Vomiting Uncoded 06/29/20 23:17 Home Meds: Home Meds Aspirin [Sonia Chewable Aspirin] 81 mg PO DAILY 10/15/13 [History] Calcium Carbonate/Vitamin D3 [Calcium 500-Vit D3 200 Caplet] 1 each PO DAILY 10/15/13 [History] Pantoprazole Sodium [Protonix] 40 mg PO DAILY 10/15/13 [History] Acetaminophen 1,000 mg PO Q4H PRN 10/03/18 [History] Albuterol Sulfate [Albuterol Sulfate Hfa] 2 puff INH Q4H 10/03/18 [History] Diclofenac Sodium [Voltaren 1% Gel] 2 gm TOP ASDIRECTED PRN 10/03/18 [History] Ferrous Sulfate [Iron] 325 mg PO DAILY 10/03/18 [History] Furosemide 20 mg PO DAILY 10/03/18 [History] Loratadine 10 mg PO ASDIRECTED 10/03/18 [History] Metoprolol Tartrate 12.5 mg PO BID 10/03/18 [History] Mometasone Furoate [Nasonex] 2 spray INH DAILY PRN 10/03/18 [History] Potassium Chloride 20 meq PO DAILY 10/03/18 [History] Tiotropium [Spiriva HandiHaler] 18 mcg INH DAILY 10/03/18 [History] Warfarin [Coumadin] 5 mg PO DAILY 10/03/18 [History] Past Medical History HEENT History: Reports: Cataract Cardiovascular History: Reports: Heart Failure, Heart Valve Replacement, High Cholesterol, Hypertension Respiratory History: Reports: COPD Gastrointestinal History: Reports: GERD 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 Hematologic History: Reports: Anticoagulation Therapy Dermatologic History: Reports: Eczema - Infectious Disease History Infectious Disease History: Reports: Chicken Pox, Mumps - Past Surgical History HEENT Surgical History: Reports: Tonsillectomy Cardiovascular Surgical History: Reports: Valve Replacement GI Surgical History: Reports: Cholecystectomy Social & Family History - Family History Family Medical History: No Pertinent Family History - Tobacco Use Tobacco Use Status *Q: Never Tobacco User - Caffeine Use Caffeine Use: Reports: Coffee, Tea - Recreational Drug Use Recreational Drug Use: No - Living Situation & Occupation Living situation: Reports: Occupation: Retired ED ROS GENERAL - Review of Systems Review Of Systems: Comprehensive ROS is negative, except as noted in HPI. ED EXAM, GENERAL - Physical Exam Exam: See Below Free Text/Narrative:: My physical exam is in the HPI #1 Interpretation EKG Interpretation Comments: EG done at 2256 atrial-ventricular dual paced complexes NM 130 QRS duration 190 QRS axis 199 No unexpected repolarization changes. Compared to 10/05/2018 the prior was not paced and therefore comparison is not much help. Impression no obvious acute injury Course - Vital Signs Last Recorded V/S: Last Vital Signs Temp 36.6 C 06/29/20 23:14 Pulse 59 L 06/29/20 23:14 Resp 16 06/29/20 23:14 BP 132/66 06/29/20 23:14 Pulse Ox 96 06/29/20 23:14 - Orders/Labs/Meds Orders: Active Orders 24 hr Category Date Time Status EKG Documentation Completion [RC] AM Care 06/29/20 23:22 Active Sodium Chloride 0.9% [Saline Flush] Med 06/29/20 23:22 Active 10 ml FLUSH ASDIRECTED PRN Sodium Chloride 0.9% [Saline Flush] Med 06/29/20 23:22 Active 2.5 ml FLUSH ASDIRECTED PRN Saline Lock Insert [OM.PC] Stat Oth 06/29/20 23:23 Ordered Medication Orders Sodium Chloride (Sodium Chloride 0.9% 10 Ml Syringe) 10 ml FLUSH ASDIRECTED PRN PRN Reason: Keep Vein Open Last Admin: 06/30/20 00:09 Dose: 10 ml Documented by: FRANNIE Sodium Chloride (Sodium Chloride 0.9% 2.5 Ml Syringe) 2.5 ml FLUSH ASDIRECTED P RN PRN Reason: Keep Vein Open Last Admin: 06/30/20 00:09 Dose: 2.5 ml Documented by: FRANNIE Labs: Laboratory Tests 06/29/20 06/29/20 06/29/20 Range/Units 23:33 23:33 23:33 WBC 5.91 (4.0-11.0) K/uL RBC 4.02 L (4.30-5.90) M/uL Hgb 12.7 (12.0-16.0) g/dL Hct 39.5 (36.0-46.0) % MCV 98.3 H (80.0-98.0) fL MCH 31.6 (27.0-32.0) pg MCHC 32.2 (31.0-37.0) g/dL RDW Std Deviation 54.5 (28.0-62.0) fl RDW Coeff of Destiny 16 H (11.0-15.0) % Plt Count 157 (150-400) K/uL MPV 11.00 (7.40-12.00) fL Neut % (Auto) 73.7 (48.0-80.0) % Lymph % (Auto) 16.2 (16.0-40.0) % Routt % (Auto) 8.6 (0.0-15.0) % Eos % (Auto) 1.2 (0.0-7.0) % Baso % (Auto) 0.3 (0.0-1.5) % Neut # (Auto) 4.4 (1.4-5.7) K/uL Lymph # (Auto) 1.0 (0.6-2.4) K/uL Routt # (Auto) 0.5 (0.0-0.8) K/uL Eos # (Auto) 0.1 (0.0-0.7) K/uL Baso # (Auto) 0.0 (0.0-0.1) K/uL INR 3.52 Sodium 141 (136-145) mmol/L Potassium 3.4 L (3.5-5.1) mmol/L Chloride 105 (98-107) mmol/L Carbon Dioxide 25.5 (21.0-32.0) mmol/L BUN 33 H (7.0-18.0) mg/dL Creatinine 1.7 H (0.6-1.0) mg/dL Est Cr Clr Drug Dosing 25.45 mL/min Estimated GFR (MDRD) 29.5 ml/min Glucose 137 H (74-106) mg/dL Calcium 9.1 (8.5-10.1) mg/dL Total Bilirubin 1.1 H (0.2-1.0) mg/dL AST 60 H (15-37) IU/L ALT 139 H (14-63) IU/L Alkaline Phosphatase 118 H (46-116) U/L Troponin I < 0.050 (0.000-0.056) ng/mL B-Natriuretic Peptide (<100) PG/ML Total Protein 7.3 (6.4-8.2) g/dL Albumin 3.6 (3.4-5.0) g/dL Globulin 3.7 (2.6-4.0) g/dL Albumin/Globulin Ratio 1.0 (0.9-1.6) Urine Color Urine Appearance Urine pH (5.0-8.0) Ur Specific [place] (1.001-1.035) Urine Protein (NEGATIVE) mg/dL Urine Glucose (UA) (NEGATIVE) mg/dL Urine Ketones (NEGATIVE) mg/dL Urine Occult Blood (NEGATIVE) Urine Nitrite (NEGATIVE) Urine Bilirubin (NEGATIVE) Urine Urobilinogen (<2.0) EU/dL Ur Leukocyte Esterase (NEGATIVE) Urine RBC (0-2/HPF) Urine WBC (0-5/HPF) Ur Epithelial Cells (NONE-FEW) Urine Bacteria (NEGATIVE) 06/29/20 06/30/20 Range/Units 23:33 00:15 WBC (4.0-11.0) K/uL RBC (4.30-5.90) M/uL Hgb (12.0-16.0) g/dL Hct (36.0-46.0) % MCV (80.0-98.0) fL MCH (27.0-32.0) pg MCHC (31.0-37.0) g/dL RDW Std Deviation (28.0-62.0) fl RDW Coeff of Destiny (11.0-15.0) % Plt Count (150-400) K/uL MPV (7.40-12.00) fL Neut % (Auto) (48.0-80.0) % Lymph % (Auto) (16.0-40.0) % Routt % (Auto) (0.0-15.0) % Eos % (Auto) (0.0-7.0) % Baso % (Auto) (0.0-1.5) % Neut # (Auto) (1.4-5.7) K/uL Lymph # (Auto) (0.6-2.4) K/uL Routt # (Auto) (0.0-0.8) K/uL Eos # (Auto) (0.0-0.7) K/uL Baso # (Auto) (0.0-0.1) K/uL INR Sodium (136-145) mmol/L Potassium (3.5-5.1) mmol/L Chloride (98-107) mmol/L Carbon Dioxide (21.0-32.0) mmol/L BUN (7.0-18.0) mg/dL Creatinine (0.6-1.0) mg/dL Est Cr Clr Drug Dosing mL/min Estimated GFR (MDRD) ml/min Glucose (74-106) mg/dL Calcium (8.5-10.1) mg/dL Total Bilirubin (0.2-1.0) mg/dL AST (15-37) IU/L ALT (14-63) IU/L Alkaline Phosphatase (46-116) U/L Troponin I (0.000-0.056) ng/mL B-Natriuretic Peptide 1057 H (<100) PG/ML Total Protein (6.4-8.2) g/dL Albumin (3.4-5.0) g/dL Globulin (2.6-4.0) g/dL Albumin/Globulin Ratio (0.9-1.6) Urine Color YELLOW Urine Appearance SLT CLOUDY Urine pH 5.5 (5.0-8.0) Ur Specific [place] 1.025 (1.001-1.035) Urine Protein NEGATIVE (NEGATIVE) mg/dL Urine Glucose (UA) NEGATIVE (NEGATIVE) mg/dL Urine Ketones NEGATIVE (NEGATIVE) mg/dL Urine Occult Blood SMALL H (NEGATIVE) Urine Nitrite NEGATIVE (NEGATIVE) Urine Bilirubin NEGATIVE (NEGATIVE) Urine Urobilinogen 0.2 (<2.0) EU/dL Ur Leukocyte Esterase TRACE H (NEGATIVE) Urine RBC 0-3 (0-2/HPF) Urine WBC 0-3 (0-5/HPF) Ur Epithelial Cells OCCASIONAL (NONE-FEW) Urine Bacteria FEW (NEGATIVE) Meds: Medications Generic Name Dose Route Start Last Admin Trade Name Freq PRN Reason Stop Dose Admin Sodium Chloride 10 ml 06/29/20 23:22 06/30/20 00:09 Sodium Chloride 0.9% 10 Ml Syringe FLUSH 10 ml ASDIRECTED PRN Administration Keep Vein Open Sodium Chloride 2.5 ml 06/29/20 23:22 06/30/20 00:09 Sodium Chloride 0.9% 2.5 Ml Syringe FLUSH 2.5 ml ASDIRECTED PRN Administration Keep Vein Open Discontinued Medications Generic Name Dose Route Start Last Admin Trade Name Freq PRN Reason Stop Dose Admin Al Hydroxide/Mg Hydroxide 15 0 ml 06/30/20 00:10 06/30/20 00:41 ml/ Lidocaine HCl 5 ml PO 06/30/20 00:11 1 each ONETIME ONE Administration Furosemide 40 mg 06/30/20 00:41 06/30/20 00:44 Furosemide 40 Mg/4 Ml Vial IVPUSH 06/30/20 00:42 40 mg NOW ONE Administration Furosemide Confirm 06/30/20 00:39 06/30/20 00:44 Furosemide 40 Mg/4 Ml Vial Administered 06/30/20 00:40 Not Given Dose 40 mg .ROUTE .STK-MED ONE Furosemide 40 mg/ Sodium 54 mls @ 100 mls/hr 06/30/20 00:08 Chloride IV 06/30/20 00:40 STAT STA Departure - Departure Time of Disposition: 01:16 Disposition: Home, Self-Care 01 Condition: Good Clinical Impression: Ankle edema, Renal function impairment Instructions: Edema, [id number] Forms: ED Department Discharge Additional Instructions: Your doctors need to see your lab reports and decide how best to keep the fluid off without impairing your kidney function. Please follow-up tomorrow. [facility] - Primary Care [address] [place] [id number] [facility] [address] [place] [id number] The following information is given to patients seen in the emergency department who are being discharged to home. This information is to outline your options for follow-up care. We provide all patients seen in our emergency department with a follow-up referral. The need for follow-up, as well as the timing and circumstances, are variable depending upon the specifics of your emergency department visit. If you don't have a primary care physician on staff, we will provide you with a referral. We always advise you to contact your personal physician following an emergency department visit to inform them of the circumstance of the visit and for follow-up with them and/or the need for any referrals to a consulting specialist. The emergency department will also refer you to a specialist when appropriate. This referral assures that you have the opportunity for follow-up care with a specialist. All of these measure are taken in an effort to provide you with optimal care, which includes your follow-up. Under all circumstances we always encourage you to contact your private physician who remains a resource for coordinating your care. When calling for follow-up care, please make the office aware that this follow-up is from your recent emergency room visit. If for any reason you are refused follow-up, please contact the [facility] Emergency Department at and asked to speak to the emergency department charge nurse. Sepsis Event Note (ED) - Evaluation Sepsis Screening Result: No Definite Risk - Focused Exam Vital Signs: Vital Signs Temp Pulse Resp BP Pulse Ox 06/29/20 23:14 36.6 C 59 L 16 132/66 96 - My Orders Last 24 Hours: My Active Orders 06/29/20 23:22 EKG Documentation Completion [RC] AM Sodium Chloride 0.9% [Saline Flush] 10 ml FLUSH ASDIRECTED PRN Sodium Chloride 0.9% [Saline Flush] 2.5 ml FLUSH ASDIRECTED PRN 06/29/20 23:23 Saline Lock Insert [OM.PC] Stat - Assessment/Plan Last 24 Hours: My Active Orders 06/29/20 23:22 EKG Documentation Completion [RC] AM Sodium Chloride 0.9% [Saline Flush] 10 ml FLUSH ASDIRECTED PRN Sodium Chloride 0.9% [Saline Flush] 2.5 ml FLUSH ASDIRECTED PRN 06/29/20 23:23 Saline Lock Insert [OM.PC] Stat
[2020-06-30 00:01] LABS: BLOOD UREA NITROGEN,BUN 33 mg/dL (7.0-18.0); CARBON DIOXIDE,CO2 25.5 mmol/L (21.0-32.0); CHLORIDE,CL 105 mmol/L (98-107); GLUCOSE RANDOM 137 mg/dL (74-106); POTASSIUM,K 3.4 mmol/L (3.5-5.1); SODIUM,NA 141 mmol/L (136-145)
[2020-06-30] MEDS ORDERED: Furosemide 40 MG in Sodium Chloride 0.9% 50 ML IV STA (00:08)
[2020-06-30] MEDS ORDERED: Alum Hydrox/Mag Hydrox/Simeth 15 ML, Lidocaine 2% 5 ML PO ONE ×2 (00:10)
--- NOTE | 2020-06-30 00:33 | CR ---
INDICATION: Weakness. Pedal edema. Dyspnea. COMPARISON: None. FINDINGS/IMPRESSION: Lungs appear clear and no acute intrathoracic abnormalities are identified. The heart appears mildly enlarged. Pulmonary vasculature is in the upper range of normal. A transvenous cardiac pacemaker is present. Included bones are unremarkable aside from prior sternotomy. Dictated by Dylan Garcia MD @ 06/30/2020 12:32:41 AM Dictated by: Dylan Garcia MD @ 06/30/2020 00:33:12 (Electronically Signed)
[2020-06-30] MEDS ORDERED: Furosemide 40 MG/4 ML VIAL ONE (00:39)
[2020-06-30] MEDS ORDERED: Furosemide 40 MG/4 ML VIAL IVPUSH ONE (00:41)
== END 2020-06-30 01:43 | disposition home or self-care (01) ==
LOC: MW.ED 22:48
DX: N28.9 Disorder of kidney and ureter, unspecified (principal); I11.0 Hypertensive heart disease with heart failure; I50.9 Heart failure, unspecified; J44.9 Chronic obstructive pulmonary disease, unspecified; K21.9 Gastro-esophageal reflux disease without esophagitis; Z91.040 Latex allergy status; Z91.018 Allergy to other foods; Z88.4 Allergy status to anesthetic agent; Z79.01 Long term (current) use of anticoagulants; Z79.82 Long term (current) use of aspirin; Z79.899 Other long term (current) drug therapy
CPT/HCPCS: 36415; 71045; 80053; 81001; 83880; 84484; 85025; 85610; 93005; 96374; 99285; A9270; J1940; 93010; 99284

== ENCOUNTER 2020-07-20 17:00 | Emergency (ER) | payer MEDICARE, OTHER ==
--- NOTE | 2020-07-20 18:47 | EDM.PDOC ---
ED HPI GENERAL MEDICAL PROBLEM - General Chief Complaint: Laceration Stated Complaint: CUT ON LEG, WON'T STOP BLEEDING Time Seen by Provider: 07/20/20 17:05 Source of Information: Reports: Patient History Limitations: Reports: No Limitations - History of Present Illness INITIAL COMMENTS - FREE TEXT/NARRATIVE: HISTORY AND PHYSICAL: History of present illness: Patient is a 75-year-old female who presents to the ED today with concern of a bleeding wound of her left lower extremity. Patient states that she has a varicose vein and she was reaching for her sock in her nail had lightly nicked the varicose vein. Patient states that she is on warfarin with a goal INR of 2- 3 and states that she is due to get her INR rechecked tomorrow morning. Patient states that she came to the emergency room because the area was bleeding even after she applied a dressing to it. Patient denies any associative symptoms or any other symptoms or concerns. Patient states she is up-to-date on her tetanus vaccine. Patient denies fever, chills, chest pain, shortness of breath, or cough. Denies headache, neck stiff ness, change in vision, syncope, or near syncope. Denies nausea, vomiting, abdominal pain, diarrhea, constipation, or dysuria. Has not noted any blood in urine or stool. Patient has been eating and drinking appropriately. Review of systems: As per history of present illness and below otherwise all systems reviewed and negative. Past medical history: As per history of present illness and as reviewed below otherwise noncontributory. Surgical history: As per history of present illness and as reviewed below otherwise noncontributory. Social history: See social history for further information Family history: As per history of present illness and as reviewed below otherwise noncontributory. Physical exam: General: Patient is alert, oriented, and in no acute distress. Patient sitting comfortably on exam table. Vital stable and reviewed by me. HEENT: Atraumatic, normocephalic, pupils equal and reactive bilaterally, negative for conjunctival pallor or scleral icterus, mucous membranes moist, TMs normal bilaterally, throat clear, neck supple, nontender, trachea midline. No drooling or trismus noted. No meningeal signs. No hot potato voice noted. Lungs: Clear to auscultation, breath sounds equal bilaterally, chest nontender. Heart: S1S2, regular rate and rhythm without overt murmur Abdomen: Soft, nondistended, nontender. Negative for masses or hepatosplenomegaly. Negative for costovertebral tenderness. Pelvis: Stable nontender. Genitourinary: Deferred. Rectal: Deferred. Skin: Intact, warm, dry. No lesions or rashes noted. Extremities: There is a very superficial abrasion noted of the left torres overlying a varicose vein without bleeding on my exam, however, dressing is saturated with blood as I removed the dressing. Patient has full range of motion of the extremity without deficit. Dorsalis pedis and posterior tibial pulses are grossly intact of the left lower extremity with capillary refill less than 2 seconds. Otherwise, atraumatic, negative for cords or calf pain. Neurovascular unremarkable. Neuro: Awake, alert, oriented. Cranial nerves II through XII unremarkable. Cerebellum unremarkable. Motor and sensory unremarkable throughout. Exam nonfocal. Notes: Symptoms that were prompt return to the ED thoroughly discussed with patient. Voices understanding and is agreeable to plan of care. Denies any further questions or concerns at this time. Diagnostics: INR Therapeutics: Surgicel dressing sterile placed by nursing staff Prescription: None Impression: Superficial abrasion Therapeutic anticoagulation Plan: 1. Keep the dressing on for 24 hours before removing. Soak a towel and water and let sit on the bandage until the bandage peels away. Do not tear the bandage off. 2. Follow-up with your primary care provider as discussed. Return to the ED as needed and as discussed. Definitive disposition and diagnosis as appropriate pending reevaluation and review of above. - Related Data Allergies Allergy/AdvReac Type Severity Reaction Status Date / Time latex Allergy Severe Anaphylactic Verified 07/20/20 17:26 Shock avocado Allergy Anaphylactic Verified 07/20/20 17:26 Shock banana Allergy Anaphylactic Verified 07/20/20 17:26 Shock anesthesia Allergy Vomiting Uncoded 07/20/20 17:26 Home Meds: Home Meds Aspirin [Sonia Chewable Aspirin] 81 mg PO DAILY 10/15/13 [History] Calcium Carbonate/Vitamin D3 [Calcium 500-Vit D3 200 Caplet] 1 each PO DAILY 10/15/13 [History] Pantoprazole Sodium [Protonix] 40 mg PO DAILY 10/15/13 [History] Acetaminophen 1,000 mg PO Q4H PRN 10/03/18 [History] Albuterol Sulfate [Albuterol Sulfate Hfa] 2 puff INH Q4H 10/03/18 [History] Diclofenac Sodium [Voltaren 1% Gel] 2 gm TOP ASDIRECTED PRN 10/03/18 [History] Ferrous Sulfate [Iron] 325 mg PO DAILY 10/03/18 [History] Furosemide 40 mg PO DAILY 10/03/18 [History] Loratadine 10 mg PO ASDIRECTED 10/03/18 [History] Metoprolol Tartrate 12.5 mg PO BID 10/03/18 [History] Mometasone Furoate [Nasonex] 2 spray INH DAILY PRN 10/03/18 [History] Potassium Chloride 20 meq PO DAILY 10/03/18 [History] Tiotropium [Spiriva HandiHaler] 18 mcg INH DAILY 10/03/18 [History] Warfarin [Coumadin] 5 mg PO DAILY 10/03/18 [History] Past Medical History HEENT History: Reports: Cataract Cardiovascular History: Reports: Heart Failure, Heart Valve Replacement, High Cholesterol, Hypertension Respiratory History: Reports: COPD Gastrointestinal History: Reports: GERD 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 Hematologic History: Reports: Anticoagulation Therapy Dermatologic History: Reports: Eczema - Infectious Disease History Infectious Disease History: Reports: Chicken Pox, Measles, Mumps, Novel Coronavirus, Shingles - Past Surgical History HEENT Surgical History: Reports: Tonsillectomy Cardiovascular Surgical History: Reports: Valve Replacement GI Surgical History: Reports: Cholecystectomy Social & Family History - Family History Family Medical History: No Pertinent Family History - Caffeine Use Caffeine Use: Reports: Coffee, Tea - Living Situation & Occupation Living situation: Reports: Occupation: Retired ED ROS GENERAL - Review of Systems Review Of Systems: Comprehensive ROS is negative, except as noted in HPI. ED EXAM, SKIN/RASH Exam: See Below (see dictation) Course - Vital Signs Last Recorded V/S: Last Vital Signs Temp 97.0 F 07/20/20 17:26 Pulse 60 07/20/20 18:53 Resp 18 07/20/20 18:53 BP 125/71 07/20/20 18:53 Pulse Ox 97 07/20/20 18:53 - Orders/Labs/Meds Labs: Laboratory Tests 07/20/20 Range/Units 18:20 INR 2.04 Departure - Departure Time of Disposition: 18:46 Disposition: Home, Self-Care 01 Clinical Impression: Anticoagulation adequate, Superficial abrasion - Discharge Information Instructions: Laceration Care, Adult, [id number] Referrals: Hope Briggs MD [Primary Care Provider] - Forms: ED Department Discharge Additional Instructions: The following information is given to patients seen in the emergency department who are being discharged to home. This information is to outline your options for follow-up care. We provide all patients seen in our emergency department with a follow-up referral. The need for follow-up, as well as the timing and circumstances, are variable depending upon the specifics of your emergency department visit. If you don't have a primary care physician on staff, we will provide you with a referral. We always advise you to contact your personal physician following an emergency department visit to inform them of the circumstance of the visit and for follow-up with them and/or the need for any referrals to a consulting specialist. The emergency department will also refer you to a specialist when appropriate. This referral assures that you have the opportunity for follow-up care with a specialist. All of these measure are taken in an effort to provide you with optimal care, which includes your follow-up. Under all circumstances we always encourage you to contact your private physician who remains a resource for coordinating your care. When calling for follow-up care, please make the office aware that this follow-up is from your recent emergency room visit. If for any reason you are refused follow-up, please contact the [facility] Emergency Department at and asked to speak to the emergency department charge nurse. [facility] [address] [place] [id number] [address] [address] 1. Keep the dressing on for 24 hours before removing. Soak a towel and water and let sit on the bandage until the bandage peels away. Do not tear the bandage off. 2. Follow-up with your primary care provider as discussed. Return to the ED as needed and as discussed. Sepsis Event Note (ED) - Evaluation Sepsis Screening Result: No Definite Risk - Focused Exam Vital Signs: Vital Signs Temp Pulse Resp BP Pulse Ox 07/20/20 18:53 60 18 125/71 97 07/20/20 17:26 97.0 F 65 18 128/101 H 96
== END 2020-07-20 18:54 | disposition home or self-care (01) ==
LOC: MW.ED 17:00
DX: S80.812A Abrasion, left lower leg, initial encounter (principal); D68.9 Coagulation defect, unspecified; J44.9 Chronic obstructive pulmonary disease, unspecified; K21.9 Gastro-esophageal reflux disease without esophagitis; Z79.01 Long term (current) use of anticoagulants; Z79.82 Long term (current) use of aspirin; Z91.040 Latex allergy status; Z91.018 Allergy to other foods; Z88.4 Allergy status to anesthetic agent; W26.8XXA Contact with other sharp object(s), not elsewhere classified, initial encounter
CPT/HCPCS: 36415; 85610; 99282; 99283

== ENCOUNTER 2021-01-28 17:08 | Emergency (ER) | payer MEDICARE, OTHER ==
--- NOTE | 2021-01-28 17:21 | EDM.PDOC ---
ED HPI GENERAL MEDICAL PROBLEM - General Chief Complaint: Genitourinary Problem Stated Complaint: KIDNEY FAILURE Time Seen by Provider: 01/28/21 17:11 Source of Information: Reports: Patient History Limitations: Reports: No Limitations - History of Present Illness INITIAL COMMENTS - FREE TEXT/NARRATIVE: 76-year-old female past medical history CHF on 40 mg of Lasix daily, hypert ension, aortic valve replacement on warfarin, GERD, CKD presents for concerning outpatient lab values. 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 She saw her primary care provider today because for the last month she has noted generalized weakness, shortness of breath, nausea, episodes of emesis worse after food. She had lab work done and was noted to have a creatinine of 1.8. Her primary care provider advised that she come to the emergency department for assessment. It appears that patient's creatinine in June of this year was 1.7. Patient notes chronic lower extremity edema unchanged from baseline. Denies chest pain. - Related Data Allergies Allergy/AdvReac Type Severity Reaction Status Date / Time latex Allergy Severe Anaphylactic Verified 01/28/21 17:17 Shock avocado Allergy Anaphylactic Verified 01/28/21 17:17 Shock banana Allergy Anaphylactic Verified 01/28/21 17:17 Shock anesthesia Allergy Vomiting Uncoded 01/28/21 17:17 Home Meds: Home Meds Aspirin [Sonia Chewable Aspirin] 81 mg PO DAILY 10/15/13 [History] Calcium Carbonate/Vitamin D3 [Calcium 500-Vit D3 200 Caplet] 1 each PO DAILY 10/15/13 [History] Pantoprazole Sodium [Protonix] 40 mg PO DAILY 10/15/13 [History] Acetaminophen 1,000 mg PO Q4H PRN 10/03/18 [History] Albuterol Sulfate [Albuterol Sulfate Hfa] 2 puff INH Q4H 10/03/18 [History] Diclofenac Sodium [Voltaren 1% Gel] 2 gm TOP ASDIRECTED PRN 10/03/18 [History] Ferrous Sulfate [Iron] 325 mg PO DAILY 10/03/18 [History] Furosemide 40 mg PO DAILY 10/03/18 [History] Loratadine 10 mg PO ASDIRECTED 10/03/18 [History] Metoprolol Tartrate 12.5 mg PO BID 10/03/18 [History] Mometasone Furoate [Nasonex] 2 spray INH DAILY PRN 10/03/18 [History] Potassium Chloride 20 meq PO DAILY 10/03/18 [History] Tiotropium [Spiriva HandiHaler] 18 mcg INH DAILY 10/03/18 [History] Warfarin [Coumadin] 5 mg PO DAILY 10/03/18 [History] Past Medical History HEENT History: Reports: Cataract Cardiovascular History: Reports: Heart Failure, Heart Valve Replacement, High Cholesterol, Hypertension Respiratory History: Reports: COPD Gastrointestinal History: Reports: GERD Other SERVICE [employer] EMERGENCY History: ovary:exploratory surgery Hematologic History: Reports: Anticoagulation Therapy Dermatologic History: Reports: Eczema - Infectious Disease History Infectious Disease History: Reports: Chicken Pox, Measles, Mumps, Novel Coronavirus, Shingles - Past Surgical History HEENT Surgical History: Reports: Tonsillectomy Cardiovascular Surgical History: Reports: Valve Replacement GI Surgical History: Reports: Cholecystectomy Social & Family History - Family History Family Medical History: No Pertinent Family History - Caffeine Use Caffeine Use: Reports: Coffee, Tea - Living Situation & Occupation Living situation: Reports: Occupation: Retired ED ROS GENERAL - Review of Systems Review Of Systems: Comprehensive ROS is negative, except as noted in HPI. ED EXAM, GENERAL - Physical Exam Exam: See Below Exam Limited By: No Limitations General Appearance: Alert, WD/WN, No Apparent Distress Ears: Hearing Grossly Normal Throat/Mouth: Normal Voice, No Airway Compromise Head: Atraumatic, Normocephalic Neck: Normal Inspection Respiratory/Chest: No Respiratory Distress, Lungs Clear, Normal Breath Sounds, No Accessory Muscle Use Cardiovascular: Normal Peripheral Pulses, Regular Rate, Rhythm, Other (b/l pitting edema LE, symmetric) GI/Abdominal: Soft, Non-Tender Extremities: Normal Inspection Neurological: Alert, Normal Cognition, Normal Gait Psychiatric: Normal Affect, Normal Mood Skin Exam: Warm, Dry, Intact, Normal Color #1 Interpretation EKG Date: 01/28/21 Time: 17:41 Rhythm: NSR Rate (Beats/Min): 62 P-Wave: Present QRS: Normal ST-T: Normal QT: Normal RI/PQ Interval: 140 Comparison: NA - No Prior EKG EKG Interpretation Comments: ventricular-paced rhythm Course - Vital Signs Last Recorded V/S: Last Vital Signs Temp 96.8 F L 01/28/21 17:18 Pulse 64 01/28/21 17:18 Resp 17 01/28/21 17:18 BP 145/84 H 01/28/21 17:18 Pulse Ox 93 L 01/28/21 17:18 - Orders/Labs/Meds Orders: Active Orders 24 hr Category Date Time Status UA W/FREDDY RFLX IF INDICATED [URIN] Stat Lab 01/28/21 17:26 Ordered Saline Lock Insert [OM.PC] Stat Oth 01/28/21 17:26 Ordered Labs: Laboratory Tests 01/28/21 01/28/21 01/28/21 Range/Units 17:32 17:58 17:58 WBC 6.43 (4.0-11.0) K/uL RBC 4.38 (4.30-5.90) M/uL Hgb 14.2 (12.0-16.0) g/dL Hct 43.1 (36.0-46.0) % MCV 98.4 H (80.0-98.0) fL MCH 32.4 H (27.0-32.0) pg MCHC 32.9 (31.0-37.0) g/dL RDW Std Deviation 58.3 (28.0-62.0) fl RDW Coeff of Destiny 16 H (11.0-15.0) % Plt Count 132 L (150-400) K/uL MPV 11.80 (7.40-12.00) fL Neut % (Auto) 68.9 (48.0-80.0) % Lymph % (Auto) 20.8 (16.0-40.0) % [place] % (Auto) 9.6 (0.0-15.0) % Eos % (Auto) 0.5 (0.0-7.0) % Baso % (Auto) 0.2 (0.0-1.5) % Neut # (Auto) 4.4 (1.4-5.7) K/uL Lymph # (Auto) 1.3 (0.6-2.4) K/uL [place] # (Auto) 0.6 (0.0-0.8) K/uL Eos # (Auto) 0.0 (0.0-0.7) K/uL Baso # (Auto) 0.0 (0.0-0.1) K/uL Nucleated RBC % 0.0 /100WBC Nucleated RBCs # 0 K/uL INR 4.09 APTT 37.8 H (18.6-31.3) SEC Sodium (136-145) mmol/L Potassium (3.5-5.1) mmol/L Chloride (98-107) mmol/L Carbon Dioxide (21.0-32.0) mmol/L BUN (7.0-18.0) mg/dL Creatinine (0.6-1.0) mg/dL Est Cr Clr Drug Dosing mL/min Estimated GFR (MDRD) ml/min Glucose (74-106) mg/dL Calcium (8.5-10.1) mg/dL Magnesium (1.8-2.4) mg/dL Total Bilirubin (0.2-1.0) mg/dL AST (15-37) IU/L ALT (14-63) IU/L Alkaline Phosphatase (46-116) U/L Troponin I (0.000-0.056) ng/mL B-Natriuretic Peptide (<100) PG/ML Total Protein (6.4-8.2) g/dL Albumin (3.4-5.0) g/dL Globulin (2.6-4.0) g/dL Albumin/Globulin Ratio (0.9-1.6) SARS-CoV-2 RNA (BALA) NEGATIVE (NEGATIVE) 01/28/21 01/28/21 Range/Units 17:58 17:58 WBC (4.0-11.0) K/uL RBC (4.30-5.90) M/uL Hgb (12.0-16.0) g/dL Hct (36.0-46.0) % MCV (80.0-98.0) fL MCH (27.0-32.0) pg MCHC (31.0-37.0) g/dL RDW Std Deviation (28.0-62.0) fl RDW Coeff of Destiny (11.0-15.0) % Plt Count (150-400) K/uL MPV (7.40-12.00) fL Neut % (Auto) (48.0-80.0) % Lymph % (Auto) (16.0-40.0) % [place] % (Auto) (0.0-15.0) % Eos % (Auto) (0.0-7.0) % Baso % (Auto) (0.0-1.5) % Neut # (Auto) (1.4-5.7) K/uL Lymph # (Auto) (0.6-2.4) K/uL [place] # (Auto) (0.0-0.8) K/uL Eos # (Auto) (0.0-0.7) K/uL Baso # (Auto) (0.0-0.1) K/uL Nucleated RBC % /100WBC Nucleated RBCs # K/uL INR APTT (18.6-31.3) SEC Sodium 134 L (136-145) mmol/L Potassium 4.0 (3.5-5.1) mmol/L Chloride 99 (98-107) mmol/L Carbon Dioxide 22.5 (21.0-32.0) mmol/L BUN 25 H (7.0-18.0) mg/dL Creatinine 1.5 H (0.6-1.0) mg/dL Est Cr Clr Drug Dosing 28.41 mL/min Estimated GFR (MDRD) 33.9 ml/min Glucose 140 H (74-106) mg/dL Calcium 9.2 (8.5-10.1) mg/dL Magnesium 2.0 (1.8-2.4) mg/dL Total Bilirubin 2.5 H (0.2-1.0) mg/dL AST 85 H (15-37) IU/L ALT 115 H (14-63) IU/L Alkaline Phosphatase 131 H (46-116) U/L Troponin I < 0.050 (0.000-0.056) ng/mL B-Natriuretic Peptide 1126 H (<100) PG/ML Total Protein 7.2 (6.4-8.2) g/dL Albumin 3.5 (3.4-5.0) g/dL Globulin 3.7 (2.6-4.0) g/dL Albumin/Globulin Ratio 0.9 (0.9-1.6) SARS-CoV-2 RNA (BALA) (NEGATIVE) Meds: Medications Discontinued Medications Generic Name Dose Route Start Last Admin Trade Name Freq PRN Reason Stop Dose Admin Sodium Chloride 500 mls @ 999 mls/hr 01/28/21 17:26 01/28/21 17:46 Normal Saline IV 01/28/21 17:56 Not Given .Bolus ONE Ondansetron HCl 4 mg 01/28/21 17:26 01/28/21 17:46 Ondansetron 4 Mg/2 Ml Sdv IVPUSH 01/28/21 17:27 Not Given ONETIME ONE Ondansetron HCl 4 mg 01/28/21 17:40 01/28/21 17:51 Ondansetron 4 Mg Tab.Dis PO 01/28/21 17:41 4 mg ONETIME ONE Administration - Re-Assessments/Exams Free Text/Narrative Re-Assessment/Exam: 01/28/21 17:30 We will get labs, chest x-ray, Covid testing, EKG. 01/28/21 18:59 Patient labs are unremarkable, at baseline. I did discuss lab results extensively with patient and family. Recommend endoscopy for further work-up. They will reach out to their primary care physician. Will discharge with Zofran for symptomatic relief. Return precautions cussed at length Departure - Departure Time of Disposition: 19:00 Disposition: Home, Self-Care 01 Condition: Good Clinical Impression: Generalized weakness - Discharge Information Instructions: Weakness Referrals: Tej Pollard [Primary Care Provider] - Forms: ED Department Discharge Additional Instructions: Please follow-up with your primary care physician. Your kidney and liver function tests are mildly elevated but not at a dangerous level. Please eat small meals, drink Ensure to supplement calories if you are unable to eat. I would recommend getting an endoscopy to screen out for functional esophageal disorders. The following information is given to patients seen in the emergency department who are being discharged to home. This information is to outline your options for follow-up care. We provide all patients seen in our emergency department with a follow-up referral. The need for follow-up, as well as the timing and circumstances, are variable depending upon the specifics of your emergency department visit. If you don't have a primary care physician on staff, we will provide you with a referral. We always advise you to contact your personal physician following an emergency department visit to inform them of the circumstance of the visit and for follow-up with them and/or the need for any referrals to a consulting specialist. The emergency department will also refer you to a specialist when appropriate. This referral assures that you have the opportunity for follow-up care with a specialist. All of these measure are taken in an effort to provide you with optimal care, which includes your follow-up. Under all circumstances we always encourage you to contact your private physician who remains a resource for coordinating your care. When calling for follow-up care, please make the office aware that this follow-up is from your recent emergency room visit. If for any reason you are refused follow-up, please contact the [facility] Emergency Department at and asked to speak to the emergency department charge nurse. Please follow up with your primary care physician. If you do not have a primary care physician, see below: [facility] [address], [place] [address] [facility] [address] [place] [address] [facility] [address] [place] [address] Sepsis Event Note (ED) - Focused Exam Vital Signs: Vital Signs Temp Pulse Resp BP Pulse Ox 01/28/21 17:18 96.8 F L 64 17 145/84 H 93 L - My Orders Last 24 Hours: My Active Orders 01/28/21 17:26 UA W/FREDDY RFLX IF INDICATED [URIN] Stat Saline Lock Insert [OM.PC] Stat - Assessment/Plan Last 24 Hours: My Active Orders 01/28/21 17:26 UA W/FREDDY RFLX IF INDICATED [URIN] Stat Saline Lock Insert [OM.PC] Stat
[2021-01-28] MEDS ORDERED: Sodium Chloride 0.9% 500 ML IV ONE (17:26)
[2021-01-28] MEDS ORDERED: Ondansetron 4 MG/2 ML SDV IVPUSH ONE (17:26)
[2021-01-28] MEDS ORDERED: Ondansetron 4 MG Tab.DIS PO ONE (17:40)
[2021-01-28 18:35] LABS: BLOOD UREA NITROGEN,BUN 25 mg/dL (7.0-18.0); CARBON DIOXIDE,CO2 22.5 mmol/L (21.0-32.0); CHLORIDE,CL 99 mmol/L (98-107); GLUCOSE RANDOM 140 mg/dL (74-106); SODIUM,NA 134 mmol/L (136-145)
--- NOTE | 2021-01-28 18:49 | CR ---
HISTORY: Shortness of breath. TECHNIQUE: One view of the chest. COMPARISON: 06/30/2020. FINDINGS: Sternotomy and valve replacement. AICD. Increased cardiomegaly. No pulmonary edema or focal lung infiltrate. No pneumothorax or pleural effusion. IMPRESSION: 1. Increased cardiomegaly. 2. No lung infiltrate or pulmonary edema. Dictated by Dipesh Park MD @ 01/28/2021 6:47:05 PM (Electronically Signed)
== END 2021-01-28 19:16 | disposition home or self-care (01) ==
LOC: MW.ED 17:08
DX: R53.1 Weakness (principal); E78.00 Pure hypercholesterolemia, unspecified; I11.0 Hypertensive heart disease with heart failure; I50.9 Heart failure, unspecified; J44.9 Chronic obstructive pulmonary disease, unspecified; K21.9 Gastro-esophageal reflux disease without esophagitis; Z79.82 Long term (current) use of aspirin; Z79.01 Long term (current) use of anticoagulants; Z79.899 Other long term (current) drug therapy; Z20.822 Contact with and (suspected) exposure to COVID-19; Z91.040 Latex allergy status; Z91.018 Allergy to other foods; Z88.4 Allergy status to anesthetic agent
CPT/HCPCS: 36415; 71045; 80053; 83735; 83880; 84484; 85025; 85610; 85730; 99285; A9270; U0002

== ENCOUNTER 2021-06-01 17:33 | Emergency (ER) | payer MEDICARE, OTHER ==
[2021-06-01] MEDS ORDERED: Sodium Chloride 0.9% 2.5 ML Syringe FLUSH PRN (18:46)
[2021-06-01] MEDS ORDERED: Sodium Chloride 0.9% 10 ML Syringe FLUSH PRN (18:46)
[2021-06-01] MEDS ORDERED: Sodium Chloride 0.9% 1,000 ML IV ONE (19:38)
[2021-06-01] MEDS ORDERED: HYDROmorphone 2 MG/ML Syringe IVPUSH ONE (19:39)
[2021-06-01] MEDS ORDERED: Ketorolac 30 MG/ML SDV IVPUSH ONE (19:39)
[2021-06-01 19:53] LABS: CARBON DIOXIDE,CO2 26.6 mmol/L (21.0-32.0); POTASSIUM,K 3.6 mmol/L (3.5-5.1)
[2021-06-01] MEDS ORDERED: Iopamidol 755 MG/ML 500 ML Multipack Bottle IVPUSH STA (20:39)
[2021-06-01] MEDS ORDERED: Sodium Chloride 0.9% 400 ML IV ONE (21:14)
[2021-06-01] MEDS ORDERED: Naloxone 0.4 MG/ML SDV IVPUSH ONE (22:10)
== END 2021-06-01 23:22 | disposition home or self-care (01) ==
LOC: MW.ED 17:33
DX: R10.9 Unspecified abdominal pain (principal); I11.0 Hypertensive heart disease with heart failure; I50.9 Heart failure, unspecified; E78.00 Pure hypercholesterolemia, unspecified; J44.9 Chronic obstructive pulmonary disease, unspecified; K21.9 Gastro-esophageal reflux disease without esophagitis; Z88.4 Allergy status to anesthetic agent; Z91.040 Latex allergy status; Z91.018 Allergy to other foods; Z88.8 Allergy status to other drugs, medicaments and biological substances; Z79.82 Long term (current) use of aspirin; Z79.899 Other long term (current) drug therapy
CPT/HCPCS: 36415; 71045; 74178; 80053; 81001; 83605; 83690; 84484; 85025; 93005; 96374; 96375; 99284; J1170; J1885; J2310; J7030; Q9967; 93010; 99285